=== PATIENT | female | born 1930 | race Caucasian/White ===

== ENCOUNTER 2018-08-07 10:40 | Inpatient (IN) | payer MEDICARE, BC ==
[~2018-08-07] VITALS: Ht 147.3 cm; Wt 63.0 kg
--- NOTE | 2018-08-07 07:15 | NUR ---
Patient seen by respiratory therapist who changed the venturi mask to nasal cannula with oxygen support at 6lpm. Report given to web services manager nurse.
[2018-08-07] MEDS ORDERED: ALBUTEROL SULFATE 2.5 MG/ 0.5 ML NEBU NEB ONE (11:00)
[2018-08-07 11:19] LABS: CARBON DIOXIDE 27 mmol/L (21-32); CHLORIDE 101 mmol/L (98-107); GLUCOSE 172 mg/dL (74-106); POTASSIUM 4.6 mmol/L (3.5-5.1)
[2018-08-07 11:20] LABS: BASOPHILS # (AUTO) 0.1 K/uL (0.0-8.0); BASOPHILS % (AUTO) 0.8 % (0.0-2.0); EOSINOPHILS # (AUTO) 0.1 K/uL (0.0-0.7); HEMATOCRIT 33.7 % (31.2-41.9); HEMOGLOBIN 11.4 g/dL (10.9-14.3); LYMPHOCYTES # (AUTO) 0.7 K/uL (20.0-40.0); LYMPHOCYTES % (AUTO) 6.3 % (20.5-51.5); MEAN CORPUSCULAR HEMOGLOBIN 30.8 uug (24.7-32.8); MEAN CORPUSCULAR HGB CONC 34 g/dL (32.3-35.6); MEAN CORPUSCULAR VOLUME 90.8 fL (75.5-95.3); MONOCYTES # (AUTO) 0.9 K/uL (2.0-10.0); MONOCYTES % (AUTO) 8.7 % (0.0-11.0); NEUTROPHILS # (AUTO) 8.6 K/uL (1.8-8.9); NEUTROPHILS % (AUTO) 83.2 % (38.5-71.5); PLATELET COUNT (AUTO) 250 K/uL (179-408); RED BLOOD CELL COUNT(AUTO) 3.71 MIL/uL (3.63-4.92); WHITE BLOOD COUNT (AUTO) 10.4 K/uL (3.8-11.8)
[2018-08-07 11:21] LABS: UREA NITROGEN, BLOOD 91 mg/dL (7-18)
[2018-08-07] MEDS ORDERED: CHOL100045 PO (11:26)
[2018-08-07] MEDS ORDERED: VITAMIN B12 PO (11:26)
[2018-08-07] MEDS ORDERED: CALC-11 PO (11:26)
[2018-08-07] MEDS ORDERED: NIFE90TA2 PO (11:26)
[2018-08-07] MEDS ORDERED: UBID30CA21 PO (11:26)
[2018-08-07] MEDS ORDERED: CARB-93 PO ×2 (11:26)
[2018-08-07] MEDS ORDERED: MULT1TAB73 PO (11:26)
[2018-08-07] MEDS ORDERED: ATOR10TA PO (11:26)
[2018-08-07] MEDS ORDERED: CARV6.252 PO (11:26)
[2018-08-07] MEDS ORDERED: LEVO88TA39 PO (11:26)
[2018-08-07] MEDS ORDERED: HYDR25TA4 PO (11:26)
[2018-08-07] MEDS ORDERED: CLON0.2T PO (11:26)
[2018-08-07] MEDS ORDERED: OMEG1CAP55 PO (11:26)
--- NOTE | 2018-08-07 11:26 | NUR ---
PT IS IN ROOM #1B. DR HARMAN EVALUATED THE PT.
[2018-08-07] MEDS ORDERED: ALBUTEROL SULFATE 2.5 MG/ 0.5 ML NEBU ONE (11:34)
[2018-08-07 11:36] LABS: ALANINE AMINOTRANSFERASE 11 U/L (14-59); ALKALINE PHOSPHATASE 56 U/L (50-136); ASPARTATE AMINOTRANSFERASE 23 U/L (15-37); BILIRUBIN,DIRECT 0.2 mg/dL (0.0-0.2); BILIRUBIN,TOTAL 0.6 mg/dL (0.2-1.0)
[2018-08-07 11:57] LABS: ABG HCO3 28.2 mmol/L; ABG PCO2 45.8 mmHg (35.0-45.0); ABG PH 7.407 (7.350-7.450); ABG PO2 59.7 mmHg (75.0-100.0); ABG SITE RIGHT RADIAL; ABG TOTAL HEMOGLOBIN 11.7 G/dL (12.0-16.0); COHb 2.1 % (0.5-1.5); MetHb 0.2 % (0.0-1.5); VENT MODE Nasal Cannula
--- NOTE | 2018-08-07 13:10 | NUR ---
REPORT WAS GIVEN TO TESTING CONSULTANT. PT WAS TRANSFERED TO ROOM #206.
[2018-08-07 13:38] VITALS: BP 147/48
--- NOTE | 2018-08-07 14:10 | NUR ---
Received patient awake, alert and oriented x 3. Patient not in any form of distress. Noted with oxygen support with venturi mask with oxygen at 4lpm. With IV access at left antecubital area, patent and intact. Oriented to room, unit and how to use the call light. Patient arrived with two caregivers. Bed in low position, side rails up x 2, call light within reach. Ensured safety and comfort. Will continue to monitor.
--- NOTE | 2018-08-07 14:45 | NUR ---
Patient was sent for VQ scan.
--- NOTE | 2018-08-07 14:50 | NUR ---
Called Dr. Collier regarding patient arrival to unit and for admitting orders.
--- NOTE | 2018-08-07 15:15 | NUR ---
Patient was seen by Dr. Vidal.
[2018-08-07 15:42] VITALS: BP 142/72
--- NOTE | 2018-08-07 18:17 | NUR ---
Still awaiting for admitting orders. Patient awake, alert and oriented x 3. Patient not in any form of distress. Oxygen support with venturi mask with oxygen at 4lpm, maintained. Latest oxygen saturation checked thru earlobe is 93%. With IV access at left antecubital area, patent and intact. Bed in low position, side rails up x 2, call light within reach. Ensured safety and comfort.
--- NOTE | 2018-08-07 19:00 | NUR ---
Report received from day shift RN. Patient has no resp. distress at the moment. Patient on NC @4L. Family at bedside. Patient A/O*3. Waiting for doctots orders to be verified. Safety measures in place. Cont. care plan and to monitor.
[2018-08-07] MEDS ORDERED: ZOLPIDEM 5 MG TABLET PO PRN (20:00)
[2018-08-07] MEDS ORDERED: MAGNESIUM HYDROXIDE 30 ML LIQUID UDC PO PRN (20:00)
[2018-08-07] MEDS ORDERED: Z GUARD REMEDY PASTE 57 GM TUBE TOP PRN (20:00)
[2018-08-07] MEDS ORDERED: ACETAMINOPHEN 325 MG TABLET PO PRN (20:00)
[2018-08-07] MEDS ORDERED: HYDROCODONE/APAP 5-325MG TABLET PO PRN (20:00)
[2018-08-07] MEDS ORDERED: ONDANSETRON 4 MG/2 ML VIAL IV PRN (20:00)
[2018-08-07 20:44] VITALS: BP 140/31
[2018-08-07] MEDS ORDERED: CLONIDINE TTS 2 PATCH TD SCH (20:45)
[2018-08-07] MEDS: Z GUARD REMEDY PASTE 57 GM TUBE TOP SCH (21:55)
[2018-08-07] MEDS: FUROSEMIDE 40 MG/4 ML VIAL IV SCH (21:55)
[2018-08-07] MEDS ORDERED: CLONIDINE HCL 0.2 MG TABLET PO SCH (22:00)
[2018-08-07] MEDS ORDERED: AZITHROMYCIN 500 MG VIAL IV ONE (22:55)
[2018-08-07] MEDS: AZITHROMYCIN IV 500 MG in IV DEXTROSE 5% 250 ML IV SCH (23:21)
[2018-08-08] MEDS: IPRATROPIUM BROMIDE 0.5 MG/2.5 ML NEBU NEB SCH ×7 (00:20→22:40)
[2018-08-08] MEDS: ALBUTEROL SULFATE 1.25 MG/3 ML NEBU NEB SCH ×7 (00:21→22:40)
[2018-08-08 00:53] VITALS: BP 145/51
[2018-08-08 03:33] LABS: BASOPHILS % (AUTO) 0.6 % (0.0-2.0); EOSINOPHILS # (AUTO) 0.2 K/uL (0.0-0.7); EOSINOPHILS % (AUTO) 3.2 % (0.0-7.0); HEMATOCRIT 27.1 % (31.2-41.9); HEMOGLOBIN 9.2 g/dL (10.9-14.3); LYMPHOCYTES # (AUTO) 0.6 K/uL (20.0-40.0); LYMPHOCYTES % (AUTO) 7.8 % (20.5-51.5); MEAN CORPUSCULAR HEMOGLOBIN 30.8 uug (24.7-32.8); MEAN CORPUSCULAR HGB CONC 34 g/dL (32.3-35.6); MEAN CORPUSCULAR VOLUME 90.5 fL (75.5-95.3); MONOCYTES # (AUTO) 0.7 K/uL (2.0-10.0); MONOCYTES % (AUTO) 9.6 % (0.0-11.0); NEUTROPHILS # (AUTO) 5.7 K/uL (1.8-8.9); NEUTROPHILS % (AUTO) 78.8 % (38.5-71.5); PLATELET COUNT (AUTO) 215 K/uL (179-408); RED BLOOD CELL COUNT(AUTO) 2.99 MIL/uL (3.63-4.92); WHITE BLOOD COUNT (AUTO) 7.3 K/uL (3.8-11.8)
[2018-08-08 04:06] LABS: CARBON DIOXIDE 29 mmol/L (21-32); CHLORIDE 100 mmol/L (98-107); CHOLESTEROL 158 mg/dL (<200); GLUCOSE 106 mg/dL (74-106); HDL CHOLESTEROL 60 mg/dL (40-60); PHOSPHOROUS 5.1 mg/dL (2.5-4.9); POTASSIUM 4.1 mmol/L (3.5-5.1); TRIGLYCERIDES 68 MG/DL (30-150)
[2018-08-08 04:10] LABS: UREA NITROGEN, BLOOD 95 mg/dL (7-18)
[2018-08-08 04:23] LABS: CREATINE KINASE, TOTAL 47 U/L (26-192)
[2018-08-08 04:45] VITALS: BP 118/37
[2018-08-08 05:21] LABS: *BILIRUBIN,URIN NEGATIVE (NEGATIVE); *BLOOD, URINE NEGATIVE (NEGATIVE); *CLARITY,URINE CLEAR (CLEAR); *COLOR,URINE YELLOW (YELLOW); *KETONES,URINE NEGATIVE (NEGATIVE); *PROTEIN,URINE NEGATIVE (NEGATIVE); *UROBILINOGEN,URINE 0.2 E.U./dl (NORMAL); LEUKOCYTE ESTERASE ,URINE NEGATIVE (NEGATIVE); NITRITE, URINE NEGATIVE (NEGATIVE); UGLUCOSE NEGATIVE (NEGATIVE)
[2018-08-08 05:54] LABS: BACTERIA,URINE NONE SEEN /HPF (NONE SEEN); RBC,URINE 0-3 /HPF (0-3); SQUAMOUS EPITHELIAL CELL,UR MODERATE /HPF (NONE SEEN); WBC,URINE 0-3 /HPF (0-3)
[2018-08-08 05:55] LABS: MUCUS,URINE FEW /LPF (0-FEW); RENAL EPITHELIAL CELLS,URINE FEW /LPF (NONE SEEN); TRANSITIONAL EPI CELLS,URINE FEW /LPF (NONE SEEN); URINE AMORPHOUS URATE MANY /HPF
--- NOTE | 2018-08-08 06:00 | NUR ---
END OF SHIFT REPORT Patient rested well in between care; Lasix given last night; urine acquired by RN Laura via i/o cath aseptically; incontinence care done; safety maintained; continue to monitor; continue plan of care; will endorse POC to next RN
[2018-08-08 06:02] LABS: *CREATININE,URINE 75.2 mg/dL (30-125); *URINE TOTAL PROTEIN RANDOM < 6.0 mg/dL (<150/24HR)
[2018-08-08] MEDS: LEVOTHYROXINE SODIUM 88 MCG TABLET PO SCH (06:17)
--- NOTE | 2018-08-08 08:00 | NUR ---
IN BED AWAKE ALERT AND ORIENTED X3. NO SS OF PAIN OR DISTRESS SR ON MONITOR
[2018-08-08] MEDS: CALCIUM CARB/VITAMIN D 600-400 MG TABLET PO SCH ×2 (08:21→16:28)
[2018-08-08] MEDS: CARVEDILOL 6.25 MG TABLET PO SCH ×2 (08:23→16:29)
[2018-08-08] MEDS: FUROSEMIDE 40 MG/4 ML VIAL IV SCH (08:23)
[2018-08-08] MEDS: CARBIDOPA/LEVODOPA 25-100MG TABLET PO SCH ×3 (08:23→16:28)
[2018-08-08] MEDS: NIFEdipine XL 90 MG TABSR PO SCH (08:23)
[2018-08-08] MEDS: Z GUARD REMEDY PASTE 57 GM TUBE TOP SCH ×2 (08:24→20:46)
[2018-08-08] MEDS: PANTOPRAZOLE SODIUM 40 MG TABLET.DR PO SCH (08:47)
[2018-08-08] MEDS ORDERED: HYDROCHLOROTHIAZIDE 25 MG TABLET PO SCH (09:00)
[2018-08-08] MEDS ORDERED: CARBIDOPA/LEVODOPA 25-100MG TABLET PO SCH (09:00)
[2018-08-08 09:14] LABS: BASOPHILS # (AUTO) 0.1 K/uL (0.0-8.0); BASOPHILS % (AUTO) 0.9 % (0.0-2.0); EOSINOPHILS # (AUTO) 0.2 K/uL (0.0-0.7); EOSINOPHILS % (AUTO) 2.2 % (0.0-7.0); HEMATOCRIT 28.9 % (31.2-41.9); HEMOGLOBIN 9.7 g/dL (10.9-14.3); LYMPHOCYTES # (AUTO) 0.6 K/uL (20.0-40.0); MEAN CORPUSCULAR HEMOGLOBIN 30.5 uug (24.7-32.8); MEAN CORPUSCULAR HGB CONC 34 g/dL (32.3-35.6); MEAN CORPUSCULAR VOLUME 90.7 fL (75.5-95.3); MONOCYTES # (AUTO) 0.6 K/uL (2.0-10.0); MONOCYTES % (AUTO) 7.3 % (0.0-11.0); NEUTROPHILS # (AUTO) 6.6 K/uL (1.8-8.9); NEUTROPHILS % (AUTO) 82.6 % (38.5-71.5); PLATELET COUNT (AUTO) 223 K/uL (179-408); RED BLOOD CELL COUNT(AUTO) 3.19 MIL/uL (3.63-4.92)
[2018-08-08 09:29] LABS: IRON, SERUM 26 ug/dL (50-175)
[2018-08-08 10:23] LABS: FERRITIN 130 ng/mL (8-252)
[2018-08-08] MEDS ORDERED: CLON1PAT2 TD (10:53)
[2018-08-08] MEDS: CEFTRIAXONE 1 G in IV DEXTROSE 5% 50 ML IV SCH (10:54)
[2018-08-08 11:09] VITALS: BP 123/54
--- NOTE | 2018-08-08 12:00 | NUR ---
WENT TO CT FOR CT CHEST
--- NOTE | 2018-08-08 14:22 | NUR ---
WOUND CARE CONSULT: PT PRESENTS WITH INCONTINENCE AND MULTIPLE AREAS OF BRUISING, SKIN STAINING/DISCOLORATION TO SACRAL/BUTTOCKS AREA, PRESENT ON ADMISSION. PT HAS VERY DRY FLAKY SKIN ON LEGS. RECOMMENDATIONS MADE FOR SKIN PROTECTION AND CARE. DISCUSSED WITH NURSING STAFF. WILL SEE PRN. FRANCISCO IN AGREEMENT WITH PLAN OF CARE. Addendum: 08/08/18 at 1424 by MARYANNE HORTON RN Amended: Links added.
[2018-08-08] MEDS ORDERED: MINERAL OIL/PETROLATUM,WHITE 57 GM TUBE TOP PRN (14:30)
[2018-08-08 15:00] VITALS: BP 130/77
--- NOTE | 2018-08-08 16:15 | NUR ---
RECEIVED A CALL FROM MICRO PT IS POSITIVE FOR MRSA NARES, DR GROVER AWARE. WILL START TX
[2018-08-08] MEDS: MUPIROCIN 2% OINT 22 GM TUBE NS SCH ×2 (17:19→20:45)
--- NOTE | 2018-08-08 19:00 | NUR ---
REPORT RECEIVED FROM DAY SHIFT, PATIENT IS A/O*3, FOLLOWS COMMANDS, COOPERATIVE. NO RESP. DISTRESS AT THE MOMENT , ON NC-4L. UPPER LOBES CLEAR ON AUSCULTATION, LOWER LOBES DIMINISHED. SAFETY MEASURES IN PLACE. CONT CARE PLAN AND MONITOR.
[2018-08-08 19:18] VITALS: BP 123/81
[2018-08-08] MEDS: AZITHROMYCIN IV 500 MG in IV DEXTROSE 5% 250 ML IV SCH (20:45)
[2018-08-08] MEDS: ATORVASTATIN 10 MG TABLET PO SCH (20:45)
[2018-08-08 23:54] VITALS: BP 141/49
[2018-08-09] MEDS: ALBUTEROL SULFATE 1.25 MG/3 ML NEBU NEB SCH ×6 (03:30→23:30)
[2018-08-09] MEDS: IPRATROPIUM BROMIDE 0.5 MG/2.5 ML NEBU NEB SCH ×6 (03:30→23:30)
[2018-08-09 03:34] VITALS: BP 131/62
[2018-08-09] MEDS: LEVOTHYROXINE SODIUM 88 MCG TABLET PO SCH (06:33)
[2018-08-09] MEDS: PANTOPRAZOLE SODIUM 40 MG TABLET.DR PO SCH (06:33)
[2018-08-09 06:57] LABS: BASOPHILS % (AUTO) 0.3 % (0.0-2.0); EOSINOPHILS # (AUTO) 0.4 K/uL (0.0-0.7); EOSINOPHILS % (AUTO) 5.2 % (0.0-7.0); HEMATOCRIT 29.2 % (31.2-41.9); LYMPHOCYTES # (AUTO) 0.5 K/uL (20.0-40.0); LYMPHOCYTES % (AUTO) 7.1 % (20.5-51.5); MEAN CORPUSCULAR HEMOGLOBIN 30.8 uug (24.7-32.8); MEAN CORPUSCULAR HGB CONC 34 g/dL (32.3-35.6); MEAN CORPUSCULAR VOLUME 89.6 fL (75.5-95.3); MONOCYTES # (AUTO) 0.6 K/uL (2.0-10.0); MONOCYTES % (AUTO) 9.1 % (0.0-11.0); NEUTROPHILS # (AUTO) 5.6 K/uL (1.8-8.9); NEUTROPHILS % (AUTO) 78.3 % (38.5-71.5); PLATELET COUNT (AUTO) 243 K/uL (179-408); RED BLOOD CELL COUNT(AUTO) 3.25 MIL/uL (3.63-4.92); WHITE BLOOD COUNT (AUTO) 7.1 K/uL (3.8-11.8)
[2018-08-09 07:13] LABS: ALANINE AMINOTRANSFERASE 9 U/L (14-59); ALKALINE PHOSPHATASE 48 U/L (50-136); ASPARTATE AMINOTRANSFERASE 17 U/L (15-37); BILIRUBIN,TOTAL 0.4 mg/dL (0.2-1.0); CARBON DIOXIDE 30 mmol/L (21-32); CHLORIDE 99 mmol/L (98-107); CREATININE 2.6 mg/dL (0.6-1.3); GLUCOSE 104 mg/dL (74-106); MAGNESIUM 2.6 mg/dL (1.8-2.4); PHOSPHOROUS 5.1 mg/dL (2.5-4.9); POTASSIUM 3.4 mmol/L (3.5-5.1); TOTAL PROTEIN, SERUM 6.8 g/dL (6.4-8.2)
[2018-08-09 07:14] LABS: UREA NITROGEN, BLOOD 90 mg/dL (7-18)
--- NOTE | 2018-08-09 07:17 | NUR ---
END OF SHIFT REPORT: PATIENT IS A/O*3, FOLLOWS COMMANDS, COOPERATIVE. NO RESP. DURING THE NIGHT , ON NC-4L. O2SAT ABOVE 97%. NO COMPLAINS , NO PAIN REPORTED. PATIENT SLEPT ABOUT 5 HOURS ON AND OFF. SAFETY MEASURES IN PLACE.
[2018-08-09] MEDS: CARVEDILOL 6.25 MG TABLET PO SCH ×2 (08:00→17:05)
--- NOTE | 2018-08-09 08:00 | NUR ---
AWAKE ALERT AND VERBALLY RESPONSIVE NO SS OF ACUTE RESPIRATORY DISTRESS. O2 DOWN TO 2L NC SATURATING 94-95%
[2018-08-09] MEDS: CALCIUM CARB/VITAMIN D 600-400 MG TABLET PO SCH ×2 (08:41→17:05)
[2018-08-09] MEDS: CARBIDOPA/LEVODOPA 25-100MG TABLET PO SCH ×3 (08:41→17:05)
[2018-08-09] MEDS: NIFEdipine XL 90 MG TABSR PO SCH (08:42)
[2018-08-09] MEDS: FUROSEMIDE 40 MG/4 ML VIAL IV SCH (08:43)
[2018-08-09] MEDS: Z GUARD REMEDY PASTE 57 GM TUBE TOP SCH ×2 (08:44→21:05)
[2018-08-09] MEDS: MUPIROCIN 2% OINT 22 GM TUBE NS SCH ×2 (08:44→20:50)
[2018-08-09 09:07] LABS: A/G RATIO 0.8 (0.7-1.7); ALBUMIN 2.8 g/dL (2.9-4.4); ALPHA-1-GLOBULIN 0.4 g/dL (0.0-0.4); BETA GLOBULIN 1.1 g/dL (0.7-1.3); GLOBULIN, TOTAL 3.5 g/dL (2.2-3.9); M-SPIKE Not Observed g/dL (Not Observed)
[2018-08-09] MEDS: CEFTRIAXONE 1 G in IV DEXTROSE 5% 50 ML IV SCH (10:16)
[2018-08-09 11:32] VITALS: BP 127/76
--- NOTE | 2018-08-09 13:00 | NUR ---
SEEN BY DR MARKS FOR RENAL FOLLOW-UP SEE NOTES
[2018-08-09 15:50] VITALS: BP 151/65
--- NOTE | 2018-08-09 16:21 | NUR ---
SEEN BY PT/OT SEE NOTES. TOLERATING 2L O2 VIA NC SATURATING 94%. NO SS OF DISTRESS
[2018-08-09 19:24] VITALS: BP 141/55
--- NOTE | 2018-08-09 19:28 | NUR ---
Received pt sitting up in bed, awake, AxO x4. Caregiver at bedside. Tele noted to be SR with HR 84. O2 sat 95% via 2L NC. Denies chest pain or SOB at this time. Discussed and reviewed plan of care with pt, pt cooperative with care. Pt shows no s/s of acute distress. MRSA isolation precautions implemented. Bed on low locked position, call light within reach. Will continue to monitor closely.
[2018-08-09] MEDS: ATORVASTATIN 10 MG TABLET PO SCH (20:46)
[2018-08-09] MEDS: AZITHROMYCIN IV 500 MG in IV DEXTROSE 5% 250 ML IV SCH (20:46)
[2018-08-09 23:45] VITALS: BP 149/68
[2018-08-10 03:27] VITALS: BP 123/88
[2018-08-10] MEDS: IPRATROPIUM BROMIDE 0.5 MG/2.5 ML NEBU NEB SCH ×6 (03:30→22:50)
[2018-08-10] MEDS: ALBUTEROL SULFATE 1.25 MG/3 ML NEBU NEB SCH ×6 (03:30→22:51)
[2018-08-10] MEDS: LEVOTHYROXINE SODIUM 88 MCG TABLET PO SCH (06:03)
[2018-08-10] MEDS: PANTOPRAZOLE SODIUM 40 MG TABLET.DR PO SCH (06:03)
--- NOTE | 2018-08-10 06:42 | NUR ---
No significant changes t/o shift. Stool softener med given x1, no effect. Pt denies pain, SOB or severe headache at this time. No s/s of acute respiratory distress. Kept pt clean and dry. Carried out all meds as ordered. Will continue to monitor.
--- NOTE | 2018-08-10 07:30 | NUR ---
RECEIVED PATIENT RESTING IN BED, O2 2L/NC, NO SOB. SAFETY MEASURES IN PLACE, BED ALARM ON. PATIENT ON CONTACT ISOLATION FOR MRSA NARES.
[2018-08-10 08:00] VITALS: BP 132/69
--- NOTE | 2018-08-10 08:00 | NUR ---
VS STABLE, AFEBRILE, O2 2L/NC SATURATING AT 98%. EDEMA NOTED ON BILATERAL LOWER EXTREMITIES, SKIN DRY, WARM. WILL CONTINUE TO MONITOR.
--- NOTE | 2018-08-10 08:00 | NUR ---
PATIENT ON TELE MONITOR AFIB CONTROLLED Addendum: 08/10/18 at 1804 by DERIAN CALLOWAY RN ADD: HR 80'S
[2018-08-10] MEDS: CARBIDOPA/LEVODOPA 25-100MG TABLET PO SCH ×3 (08:32→17:10)
[2018-08-10] MEDS: ASPIRIN EC 325 MG TABLET.DR PO SCH (08:32)
[2018-08-10] MEDS: CALCIUM CARB/VITAMIN D 600-400 MG TABLET PO SCH ×2 (08:32→17:10)
[2018-08-10] MEDS: CARVEDILOL 6.25 MG TABLET PO SCH (08:33)
[2018-08-10] MEDS: FUROSEMIDE 40 MG/4 ML VIAL IV SCH (08:34)
[2018-08-10] MEDS: NIFEdipine XL 90 MG TABSR PO SCH (08:34)
[2018-08-10] MEDS: Z GUARD REMEDY PASTE 57 GM TUBE TOP SCH ×2 (08:37→20:59)
[2018-08-10] MEDS: MUPIROCIN 2% OINT 22 GM TUBE NS SCH ×2 (08:45→20:27)
[2018-08-10] MEDS: CEFTRIAXONE 1 G in IV DEXTROSE 5% 50 ML IV SCH (09:05)
[2018-08-10 11:32] VITALS: BP 102/43
[2018-08-10 16:00] VITALS: BP 121/47
[2018-08-10 17:56] LABS: BASOPHILS % (AUTO) 0.6 % (0.0-2.0); EOSINOPHILS # (AUTO) 0.4 K/uL (0.0-0.7); EOSINOPHILS % (AUTO) 4.5 % (0.0-7.0); HEMATOCRIT 30.2 % (31.2-41.9); HEMOGLOBIN 10.4 g/dL (10.9-14.3); LYMPHOCYTES # (AUTO) 0.6 K/uL (20.0-40.0); LYMPHOCYTES % (AUTO) 7.6 % (20.5-51.5); MEAN CORPUSCULAR HEMOGLOBIN 31.1 uug (24.7-32.8); MEAN CORPUSCULAR HGB CONC 35 g/dL (32.3-35.6); MEAN CORPUSCULAR VOLUME 89.8 fL (75.5-95.3); MONOCYTES # (AUTO) 0.9 K/uL (2.0-10.0); NEUTROPHILS # (AUTO) 6.1 K/uL (1.8-8.9); NEUTROPHILS % (AUTO) 76.3 % (38.5-71.5); PLATELET COUNT (AUTO) 277 K/uL (179-408); RED BLOOD CELL COUNT(AUTO) 3.36 MIL/uL (3.63-4.92)
--- NOTE | 2018-08-10 18:00 | NUR ---
PATIENT ON TELE MONITOR AFIB CONTROLLED HR 98
[2018-08-10 18:22] LABS: ALANINE AMINOTRANSFERASE 9 U/L (14-59); ALKALINE PHOSPHATASE 53 U/L (50-136); ASPARTATE AMINOTRANSFERASE 15 U/L (15-37); BILIRUBIN,TOTAL 0.4 mg/dL (0.2-1.0); CARBON DIOXIDE 35 mmol/L (21-32); CHLORIDE 99 mmol/L (98-107); CREATININE 2.5 mg/dL (0.6-1.3); GLUCOSE 131 mg/dL (74-106); MAGNESIUM 2.6 mg/dL (1.8-2.4); PHOSPHOROUS 3.9 mg/dL (2.5-4.9); POTASSIUM 3.6 mmol/L (3.5-5.1); TOTAL PROTEIN, SERUM 6.8 g/dL (6.4-8.2)
[2018-08-10 18:23] LABS: UREA NITROGEN, BLOOD 83 mg/dL (7-18)
[2018-08-10 19:00] VITALS: BP 130/85
--- NOTE | 2018-08-10 19:20 | NUR ---
Received patient lying in bed. AAOX3. In no acute distress. VS WNL. Denies any pain or SOB. On O2 at 2llpm via NC in place. O2 sat at 98%. IV site on right wrist intact and patent. NSR with controlled A. fib on tele at 79/min. Private caregiver at bedside. Isolation precaution observed. Safety measure initiated and call gale within reach.
[2018-08-10] MEDS: AZITHROMYCIN IV 500 MG in IV DEXTROSE 5% 250 ML IV SCH (20:26)
[2018-08-10] MEDS: ATORVASTATIN 10 MG TABLET PO SCH (20:26)
[2018-08-10] MEDS: LACTOBACILLUS RHAMNOSUS GG 1 EACH CAPSULE PO SCH (20:26)
[2018-08-10] MEDS: METOPROLOL TARTRATE 50 MG TABLET PO SCH (20:26)
[2018-08-11] VITALS: BP 121/78
[2018-08-11] MEDS: IPRATROPIUM BROMIDE 0.5 MG/2.5 ML NEBU NEB SCH ×4 (03:12→14:30)
[2018-08-11] MEDS: ALBUTEROL SULFATE 1.25 MG/3 ML NEBU NEB SCH ×4 (03:12→14:30)
[2018-08-11 04:00] VITALS: BP 145/51
[2018-08-11] MEDS: LEVOTHYROXINE SODIUM 88 MCG TABLET PO SCH (06:06)
[2018-08-11] MEDS: PANTOPRAZOLE SODIUM 40 MG TABLET.DR PO SCH (06:06)
--- NOTE | 2018-08-11 06:17 | NUR ---
AAOX3. In no acute distress. Denies any pain or SOB. On O2 at 2llpm via NC in place. O2 sat at 98%. Sporadic non-productive cough noted. IV site on right wrist intact and patent. NSR, occasional sinus jigar on tele at 67/min. No adverse reaction noted from IV ABX. Isolation precaution observed. Safety measure maintained and call gale within reach.
[2018-08-11 06:22] LABS: BASOPHILS % (AUTO) 0.4 % (0.0-2.0); EOSINOPHILS # (AUTO) 0.5 K/uL (0.0-0.7); EOSINOPHILS % (AUTO) 6.8 % (0.0-7.0); HEMATOCRIT 27.9 % (31.2-41.9); HEMOGLOBIN 9.6 g/dL (10.9-14.3); LYMPHOCYTES # (AUTO) 0.7 K/uL (20.0-40.0); LYMPHOCYTES % (AUTO) 9.8 % (20.5-51.5); MEAN CORPUSCULAR HEMOGLOBIN 30.3 uug (24.7-32.8); MEAN CORPUSCULAR HGB CONC 34 g/dL (32.3-35.6); MEAN CORPUSCULAR VOLUME 88.4 fL (75.5-95.3); MONOCYTES # (AUTO) 0.7 K/uL (2.0-10.0); MONOCYTES % (AUTO) 10.8 % (0.0-11.0); NEUTROPHILS # (AUTO) 4.8 K/uL (1.8-8.9); NEUTROPHILS % (AUTO) 72.2 % (38.5-71.5); PLATELET COUNT (AUTO) 244 K/uL (179-408); RED BLOOD CELL COUNT(AUTO) 3.15 MIL/uL (3.63-4.92); WHITE BLOOD COUNT (AUTO) 6.6 K/uL (3.8-11.8)
[2018-08-11 07:00] LABS: ALANINE AMINOTRANSFERASE 10 U/L (14-59); ALKALINE PHOSPHATASE 47 U/L (50-136); ASPARTATE AMINOTRANSFERASE 17 U/L (15-37); BILIRUBIN,TOTAL 0.4 mg/dL (0.2-1.0); CARBON DIOXIDE 34 mmol/L (21-32); CHLORIDE 99 mmol/L (98-107); CREATININE 2.2 mg/dL (0.6-1.3); GLUCOSE 93 mg/dL (74-106); MAGNESIUM 2.6 mg/dL (1.8-2.4); PHOSPHOROUS 3.8 mg/dL (2.5-4.9); POTASSIUM 3.5 mmol/L (3.5-5.1); TOTAL PROTEIN, SERUM 6.8 g/dL (6.4-8.2); UREA NITROGEN, BLOOD 76 mg/dL (7-18)
--- NOTE | 2018-08-11 07:25 | NUR ---
PATIENT IS ON FIRST STEP MATTRASS FOR COMFORT AND GOOD BODY ALLIGNMENT ASSISTED WITH REPOSITIONING Q2H SHE IS ALERT AND VERBALLY RESPONSIVE BUT FORGETFUL ON O2 AT 2L/M BY NASAL CANULA WITH NO SOB AT THIS TIME ON CONTACT ISOLATION AND PRECAUTION HAS POSITIVE MRSA NARES.TELE IS SINUS OCTAVIO AT 52 AT THIS TIME PATIENT MADE COMFORTABLE WITH CALL LIGHTS AND PERSONAL BELONGINGS WITHIN EASY REACH NOT IN DISTRESS AT THIS TIME WILL CONTINUE TO OBSERVE AND PROVIDE SAFE AND THERAPEUTIC ENVIRONMENT AT ALL TIMES.
[2018-08-11] MEDS: CARBIDOPA/LEVODOPA 25-100MG TABLET PO SCH ×2 (08:37→11:49)
[2018-08-11] MEDS: LACTOBACILLUS RHAMNOSUS GG 1 EACH CAPSULE PO SCH (08:37)
[2018-08-11] MEDS: ASPIRIN EC 325 MG TABLET.DR PO SCH (08:37)
[2018-08-11] MEDS: CALCIUM CARB/VITAMIN D 600-400 MG TABLET PO SCH (08:37)
[2018-08-11] MEDS: FUROSEMIDE 40 MG/4 ML VIAL IV SCH (08:38)
[2018-08-11] MEDS: MUPIROCIN 2% OINT 22 GM TUBE NS SCH (08:39)
[2018-08-11] MEDS: Z GUARD REMEDY PASTE 57 GM TUBE TOP SCH (08:39)
[2018-08-11] MEDS: METOPROLOL TARTRATE 50 MG TABLET PO SCH ×2 (08:40→11:12)
[2018-08-11] MEDS: CEFTRIAXONE 1 G in IV DEXTROSE 5% 50 ML IV SCH (09:19)
[2018-08-11 11:31] VITALS: BP 147/50
[2018-08-11 11:35] VITALS: BP 147/50
[2018-08-11] MEDS ORDERED: ALBU1.25 NEB (12:02)
[2018-08-11] MEDS ORDERED: IPRA0.2S6 NEB (12:02)
[2018-08-11] MEDS ORDERED: FURO-151 PO (12:02)
[2018-08-11] MEDS ORDERED: POTA-10 PO (12:02)
--- NOTE | 2018-08-11 12:35 | NUR ---
PATIENT SEEN BY DR GROVER WITH ORDER TO DISCHARGE PATIENT HOME TODAY.MD STATED THAT HE ALREADY SENT MEDICATIONS ELECTRONICALLY TO PATIENTS HOME PHARMACY BUT PATIENT DAUGHTER STATED THAT THE PHARMACY DID NOT RECEIVE THE ORDERS SO SHE GAVE ME ANOTHER PHARMACY NAMED [facility].
--- NOTE | 2018-08-11 13:00 | NUR ---
ON O2 PATIENT WAS 95% O2 TURNED OFF FOR 15 MINUTES AND THEN RECHECKED ON ROOM AIR AND THE SAT IS 84 % O2 REAPPLIED AT THIS TIME.PATIENT WILL NEED HOME O2 SENIOR IOS DEVELOPER AWARE.
--- NOTE | 2018-08-11 13:30 | NUR ---
Per Priya RN: pt saturation on room air was 84%. noted and faxed with orders for oxygen to [facility] @ [phone]
--- NOTE | 2018-08-11 13:30 | NUR ---
CALLED [facility] SPOKE WITH CLEMENTE PHARMACIST AND ORDERED ALL HER HOME MEDICATIONS PATIENTS GRAND DAUGHTER GEOVANI HERE AND STATED WILL TURBINE ASSEMBLER.
[2018-08-11 15:05] VITALS: BP 132/47
--- NOTE | 2018-08-11 16:52 | NUR ---
PATIENTS OLVIN BRAVO HERE AND PATIENT DISCHARGED TO HIS CARE IN SATISFACTORY CONDITION WITH DISCHARGE INSTRUCTIONS AND PRESCRIPTIONS FOR THE NEBULIZER MACHINE AND O2 PATIENTS SON BROUGHT THE PORTABLE O2 THAT WAS DELIVERED TO THE PATIENTS HOUSE CONNECTED TO HER AT 2L/M BY NASAL CANULA PATIENT DISCHARGED IN SATISFACTORY CONDITION WITH NO RESPIRATORY DISTRESS AT THIS TIME WITH ALL HER PERSONAL BELONGINGS.PATIENTS CERTIFIED ADAPTED PHYSICAL EDUCATOR ALSO PRESENT EDUCATED HER ON FLOATING PATIENTS HEELS AND TURNING AND REPOSITIONING AND SHE EXPRESSED UNDERSTANDING.
[2018-08-13] MEDS ORDERED: CLONIDINE TTS 2 PATCH TD SCH (09:00)
== END 2018-08-11 17:00 | disposition home health service (06) | DRG 291 ==
LOC: ER 10:40 → TELE 12:36
PROVIDERS: ADMIT Internal Medicine; ATTEND Internal Medicine
DX: I13.0 Hypertensive heart and chronic kidney disease with heart failure and stage 1 through stage 4 chronic kidney disease, or unspecified chronic kidney disease (principal); I50.33 Acute on chronic diastolic (congestive) heart failure; N17.0 Acute kidney failure with tubular necrosis; J18.9 Pneumonia, unspecified organism; J96.01 Acute respiratory failure with hypoxia; J44.0 Chronic obstructive pulmonary disease with (acute) lower respiratory infection; J44.1 Chronic obstructive pulmonary disease with (acute) exacerbation; J98.11 Atelectasis; N18.9 Chronic kidney disease, unspecified; J20.9 Acute bronchitis, unspecified; E78.5 Hyperlipidemia, unspecified; G20 Parkinson's disease; Z96.651 Presence of right artificial knee joint; Z90.710 Acquired absence of both cervix and uterus; Z85.038 Personal history of other malignant neoplasm of large intestine; E03.9 Hypothyroidism, unspecified; I07.1 Rheumatic tricuspid insufficiency; Z74.09 Other reduced mobility; I48.91 Unspecified atrial fibrillation; I49.1 Atrial premature depolarization; Z98.1 Arthrodesis status; D64.9 Anemia, unspecified; Z66 Do not resuscitate
CPT/HCPCS: 36415; 36600; 70030-TC; 71045; 71250; 76604; 76770; 78579; 83550; 83605; 83735; 83970; 84100; 84155; 84156; 84165; 84300; 85025; 85730; 87040; 87086; 87400; 92523; 92526; 92610; 93005; 93307; 94640; 97110; 97116; 97165; 97530; A4663; A9540; A9567; C1758; G0378; J0456; J0696; J1940; J3590; J7050; J7060

== ENCOUNTER 2018-11-17 11:44 | Inpatient (IN) | payer MEDICARE, BC ==
[~2018-11-17] VITALS: Ht 147.3 cm; Wt 51.5 kg
[~2018-11-17 11:44] MED LIST: ALBU1.25 NEB; ATOR10TA PO; CALC-11 PO; CARB-93 PO; CARV6.252 PO; CHOL100045 PO; CLON1PAT2 TD; FURO-151 PO; IPRA0.2S6 NEB; LEVO88TA39 PO; MULT1TAB73 PO; NIFE90TA2 PO; OMEG1CAP55 PO; POTA-10 PO; UBID30CA21 PO; VITAMIN B12 PO
[2018-11-17 12:31] LABS: BASOPHILS # (AUTO) 0.1 K/uL (0.0-8.0); BASOPHILS % (AUTO) 0.8 % (0.0-2.0); EOSINOPHILS # (AUTO) 0.1 K/uL (0.0-0.7); EOSINOPHILS % (AUTO) 2.2 % (0.0-7.0); HEMATOCRIT 28.2 % (31.2-41.9); HEMOGLOBIN 9.6 g/dL (10.9-14.3); LYMPHOCYTES # (AUTO) 0.8 K/uL (20.0-40.0); LYMPHOCYTES % (AUTO) 12.8 % (20.5-51.5); MEAN CORPUSCULAR HEMOGLOBIN 29.7 uug (24.7-32.8); MEAN CORPUSCULAR HGB CONC 34 g/dL (32.3-35.6); MEAN CORPUSCULAR VOLUME 87.3 fL (75.5-95.3); MONOCYTES # (AUTO) 0.5 K/uL (2.0-10.0); NEUTROPHILS # (AUTO) 4.8 K/uL (1.8-8.9); NEUTROPHILS % (AUTO) 76.2 % (38.5-71.5); PLATELET COUNT (AUTO) 272 K/uL (179-408); RED BLOOD CELL COUNT(AUTO) 3.23 MIL/uL (3.63-4.92); WHITE BLOOD COUNT (AUTO) 6.3 K/uL (3.8-11.8)
[2018-11-17] MEDS ORDERED: MULT-328 PO (12:36)
[2018-11-17] MEDS ORDERED: FURO-151 PO (12:36)
[2018-11-17] MEDS ORDERED: IPRA0.2S48 IH (12:36)
[2018-11-17] MEDS ORDERED: ALBU1.257 NEB (12:36)
[2018-11-17] MEDS ORDERED: CYAN100T3 PO (12:36)
[2018-11-17 12:37] LABS: CARBON DIOXIDE 36 mmol/L (21-32); CHLORIDE 102 mmol/L (98-107); CREATININE 4.6 mg/dL (0.6-1.3); GLUCOSE 177 mg/dL (74-106); POTASSIUM 4.5 mmol/L (3.5-5.1)
[2018-11-17 12:39] LABS: UREA NITROGEN, BLOOD 84 mg/dL (7-18)
[2018-11-17 12:43] LABS: ALANINE AMINOTRANSFERASE 9 U/L (14-59); ALKALINE PHOSPHATASE 52 U/L (50-136); ASPARTATE AMINOTRANSFERASE 19 U/L (15-37); BILIRUBIN,DIRECT 0.1 mg/dL (0.0-0.2); BILIRUBIN,TOTAL 0.4 mg/dL (0.2-1.0); LIPASE 275 U/L (73-393); TOTAL PROTEIN, SERUM 7.2 g/dL (6.4-8.2)
[2018-11-17 15:05] VITALS: BP 106/50
[2018-11-17] MEDS ORDERED: Z GUARD REMEDY PASTE 57 GM TUBE TOP PRN (16:45)
[2018-11-17] MEDS ORDERED: IPRATROPIUM BROMIDE 0.5 MG/2.5 ML NEBU NEB PRN (18:45)
[2018-11-17] MEDS ORDERED: MORPHINE SULFATE 2 MG/1 ML DISP.SYRIN IV PRN (18:45)
[2018-11-17] MEDS ORDERED: ONDANSETRON 4 MG/2 ML VIAL IV PRN (18:45)
[2018-11-17] MEDS ORDERED: ACETAMINOPHEN 325 MG TABLET PO PRN (18:45)
[2018-11-17] MEDS ORDERED: ALBUTEROL SULFATE 2.5 MG/3 ML NEBU NEB PRN (18:45)
[2018-11-17 19:14] VITALS: BP 183/55
[2018-11-17] MEDS: ATORVASTATIN 10 MG TABLET PO SCH (20:19)
[2018-11-17] MEDS: CARBIDOPA/LEVODOPA 25-100MG TABLET PO SCH (20:20)
[2018-11-17] MEDS: hydrALAZINE HCL 25 MG TABLET PO PRN (20:26)
[2018-11-17] MEDS: IV 1/2NS 1000 ML 1,000 ML IV PRN (20:29)
[2018-11-17 23:37] VITALS: BP 171/46
[2018-11-18 02:00] VITALS: BP 152/65
[2018-11-18 03:31] VITALS: BP 161/53
[2018-11-18] MEDS: hydrALAZINE HCL 25 MG TABLET PO PRN (05:22)
[2018-11-18] MEDS: LEVOTHYROXINE SODIUM 88 MCG TABLET PO SCH (05:22)
[2018-11-18 06:46] LABS: BASOPHILS % (AUTO) 0.7 % (0.0-2.0); EOSINOPHILS # (AUTO) 0.1 K/uL (0.0-0.7); EOSINOPHILS % (AUTO) 2.2 % (0.0-7.0); HEMATOCRIT 25.9 % (31.2-41.9); LYMPHOCYTES # (AUTO) 0.9 K/uL (20.0-40.0); LYMPHOCYTES % (AUTO) 14.1 % (20.5-51.5); MEAN CORPUSCULAR HEMOGLOBIN 30.1 uug (24.7-32.8); MEAN CORPUSCULAR HGB CONC 35 g/dL (32.3-35.6); MEAN CORPUSCULAR VOLUME 86.6 fL (75.5-95.3); MONOCYTES # (AUTO) 0.7 K/uL (2.0-10.0); NEUTROPHILS # (AUTO) 4.8 K/uL (1.8-8.9); PLATELET COUNT (AUTO) 250 K/uL (179-408); WHITE BLOOD COUNT (AUTO) 6.6 K/uL (3.8-11.8)
[2018-11-18 07:31] LABS: ALANINE AMINOTRANSFERASE < 6 U/L (14-59); ALKALINE PHOSPHATASE 46 U/L (50-136); ASPARTATE AMINOTRANSFERASE 16 U/L (15-37); BILIRUBIN,TOTAL 0.3 mg/dL (0.2-1.0); CARBON DIOXIDE 34 mmol/L (21-32); CHLORIDE 101 mmol/L (98-107); CHOLESTEROL 123 mg/dL (<200); CREATININE 4.4 mg/dL (0.6-1.3); GLUCOSE 96 mg/dL (74-106); HDL CHOLESTEROL 59 mg/dL (40-60); MAGNESIUM 2.8 mg/dL (1.8-2.4); POTASSIUM 4.3 mmol/L (3.5-5.1); TOTAL PROTEIN, SERUM 6.9 g/dL (6.4-8.2); TRIGLYCERIDES 71 MG/DL (30-150); UREA NITROGEN, BLOOD 71 mg/dL (7-18)
[2018-11-18 07:51] LABS: CREATINE KINASE, TOTAL 29 U/L (26-192)
[2018-11-18 07:58] LABS: THYROID STIMULATING HORMONE 2.168 mIU/mL (0.358-3.740)
[2018-11-18 08:00] LABS: IRON, SERUM 48 ug/dL (50-175)
[2018-11-18] MEDS: CARBIDOPA/LEVODOPA 25-100MG TABLET PO SCH ×3 (08:02→16:49)
[2018-11-18] MEDS: MULTIVIT, IRON, MIN NO. 8, FA TABLET PO SCH (08:02)
[2018-11-18] MEDS: NIFEdipine XL 90 MG TABSR PO SCH (08:02)
[2018-11-18] MEDS ORDERED: [UNRECOGNIZED DRUG - OTHER] PO SCH (09:00)
[2018-11-18] MEDS: CALCIUM CARB/VITAMIN D 600-400 MG TABLET PO SCH (09:00)
[2018-11-18] MEDS ORDERED: Medication Not On Formulary EA (Omega-3 Acid Ethyl Esters (Lovaza) 1 GM) PO SCH (09:00)
[2018-11-18 11:12] VITALS: BP 116/41
[2018-11-18 12:00] VITALS: BP 116/41
[2018-11-18 15:00] VITALS: BP 129/47
[2018-11-18] MEDS: CYANOCOBALAMIN 100 MCG TABLET PO SCH (16:49)
[2018-11-18] MEDS: IV 1/2NS 1000 ML 1,000 ML IV PRN (16:54)
[2018-11-18] MEDS ORDERED: CHOLECALCIFEROL 1,000 UNIT TABLET PO SCH (18:00)
[2018-11-18] MEDS: IPRATROPIUM BROMIDE 0.5 MG/2.5 ML NEBU NEB SCH ×2 (19:15→23:00)
[2018-11-18] MEDS: ALBUTEROL SULFATE 2.5 MG/3 ML NEBU NEB SCH ×2 (19:15→23:00)
[2018-11-18 20:20] VITALS: BP 125/38
[2018-11-18] MEDS: ATORVASTATIN 10 MG TABLET PO SCH (21:10)
[2018-11-18] MEDS: FLUTICASONE/VILANTEROL 1 EACH BLST.W.DEV INH SCH (21:11)
[2018-11-19 01:08] VITALS: BP 132/45
[2018-11-19] MEDS: ALBUTEROL SULFATE 2.5 MG/3 ML NEBU NEB SCH ×6 (02:50→22:34)
[2018-11-19] MEDS: IPRATROPIUM BROMIDE 0.5 MG/2.5 ML NEBU NEB SCH ×6 (02:50→22:34)
[2018-11-19] MEDS: LEVOTHYROXINE SODIUM 88 MCG TABLET PO SCH (06:20)
[2018-11-19 06:37] VITALS: BP 143/56
[2018-11-19 08:07] LABS: EOSINOPHILS # (AUTO) 0.2 K/uL (0.0-0.7); MONOCYTES # (AUTO) 0.7 K/uL (2.0-10.0); PLATELET COUNT (AUTO) 219 K/uL (179-408)
[2018-11-19] MEDS: FLUTICASONE/VILANTEROL 1 EACH BLST.W.DEV INH SCH (08:14)
[2018-11-19] MEDS: CARBIDOPA/LEVODOPA 25-100MG TABLET PO SCH ×3 (08:14→16:44)
[2018-11-19] MEDS: MULTIVIT, IRON, MIN NO. 8, FA TABLET PO SCH (08:15)
[2018-11-19 08:18] LABS: BASOPHILS % (AUTO) 0.6 % (0.0-2.0); EOSINOPHILS % (AUTO) 2.3 % (0.0-7.0); LYMPHOCYTES % (AUTO) 12.5 % (20.5-51.5); MEAN CORPUSCULAR HEMOGLOBIN 30.1 uug (24.7-32.8); MEAN CORPUSCULAR HGB CONC 35 g/dL (32.3-35.6); MEAN CORPUSCULAR VOLUME 86.5 fL (75.5-95.3); MONOCYTES % (AUTO) 9.2 % (0.0-11.0); NEUTROPHILS # (AUTO) 5.8 K/uL (1.8-8.9); NEUTROPHILS % (AUTO) 75.4 % (38.5-71.5); RED BLOOD CELL COUNT(AUTO) 2.67 MIL/uL (3.63-4.92); WHITE BLOOD COUNT (AUTO) 7.7 K/uL (3.8-11.8)
[2018-11-19 08:19] LABS: HEMATOCRIT 23.1 % (31.2-41.9)
[2018-11-19] MEDS: NIFEdipine XL 90 MG TABSR PO SCH (08:24)
[2018-11-19] MEDS: CALCIUM CARB/VITAMIN D 600-400 MG TABLET PO SCH (08:25)
[2018-11-19 08:41] LABS: ALANINE AMINOTRANSFERASE 6 U/L (14-59); ALKALINE PHOSPHATASE 45 U/L (50-136); ASPARTATE AMINOTRANSFERASE 18 U/L (15-37); BILIRUBIN,TOTAL 0.3 mg/dL (0.2-1.0); CARBON DIOXIDE 32 mmol/L (21-32); CHLORIDE 101 mmol/L (98-107); CREATINE KINASE, TOTAL 35 U/L (26-192); CREATININE 4.2 mg/dL (0.6-1.3); GLUCOSE 87 mg/dL (74-106); MAGNESIUM 2.5 mg/dL (1.8-2.4); POTASSIUM 4.3 mmol/L (3.5-5.1); TOTAL PROTEIN, SERUM 6.7 g/dL (6.4-8.2); UREA NITROGEN, BLOOD 73 mg/dL (7-18)
[2018-11-19] MEDS ORDERED: CLONIDINE TTS 2 PATCH TD SCH (09:00)
[2018-11-19 11:36] VITALS: BP 118/48
[2018-11-19] MEDS: IV D5/ 0.9% NACL 1,000 ML IV PRN (13:47)
[2018-11-19] MEDS: hydrALAZINE HCL 25 MG TABLET PO PRN (15:03)
[2018-11-19 15:13] VITALS: BP 171/51
[2018-11-19] MEDS: OMEGA-3 FATTY ACIDS/FISH OIL CAPSULE PO SCH (16:44)
[2018-11-19] MEDS: CYANOCOBALAMIN 100 MCG TABLET PO SCH (16:44)
[2018-11-19] MEDS: ATORVASTATIN 10 MG TABLET PO SCH (20:06)
[2018-11-19 20:26] VITALS: BP 173/56
[2018-11-19] MEDS ORDERED: hydrALAZINE HCL 25 MG TABLET PO PRN (21:15)
[2018-11-19 22:00] VITALS: BP 149/66
[2018-11-20] VITALS: BP 138/65
[2018-11-20 00:11] LABS: ALBUMIN 2.9 g/dL (2.9-4.4); ALPHA-1-GLOBULIN 0.3 g/dL (0.0-0.4); ALPHA-2-GLOBULIN 0.7 g/dL (0.4-1.0); M-SPIKE Not Observed g/dL (Not Observed)
[2018-11-20] MEDS: ALBUTEROL SULFATE 2.5 MG/3 ML NEBU NEB SCH ×7 (03:29→23:26)
[2018-11-20] MEDS: IPRATROPIUM BROMIDE 0.5 MG/2.5 ML NEBU NEB SCH ×7 (03:29→23:25)
[2018-11-20 04:00] VITALS: BP 100/66
[2018-11-20] MEDS: LEVOTHYROXINE SODIUM 88 MCG TABLET PO SCH (06:13)
[2018-11-20 06:37] LABS: BASOPHILS % (AUTO) 0.6 % (0.0-2.0); EOSINOPHILS # (AUTO) 0.2 K/uL (0.0-0.7); EOSINOPHILS % (AUTO) 2.7 % (0.0-7.0); HEMATOCRIT 22.5 % (31.2-41.9); HEMOGLOBIN 7.9 g/dL (10.9-14.3); LYMPHOCYTES # (AUTO) 0.8 K/uL (20.0-40.0); LYMPHOCYTES % (AUTO) 12.4 % (20.5-51.5); MEAN CORPUSCULAR HEMOGLOBIN 30.4 uug (24.7-32.8); MEAN CORPUSCULAR HGB CONC 35 g/dL (32.3-35.6); MEAN CORPUSCULAR VOLUME 87.2 fL (75.5-95.3); MONOCYTES # (AUTO) 0.6 K/uL (2.0-10.0); MONOCYTES % (AUTO) 9.9 % (0.0-11.0); NEUTROPHILS # (AUTO) 4.6 K/uL (1.8-8.9); NEUTROPHILS % (AUTO) 74.4 % (38.5-71.5); PLATELET COUNT (AUTO) 218 K/uL (179-408); RED BLOOD CELL COUNT(AUTO) 2.58 MIL/uL (3.63-4.92); WHITE BLOOD COUNT (AUTO) 6.2 K/uL (3.8-11.8)
[2018-11-20 06:59] LABS: ALKALINE PHOSPHATASE 44 U/L (50-136); ASPARTATE AMINOTRANSFERASE 10 U/L (15-37); BILIRUBIN,TOTAL 0.3 mg/dL (0.2-1.0); CARBON DIOXIDE 30 mmol/L (21-32); CHLORIDE 106 mmol/L (98-107); CREATININE 3.7 mg/dL (0.6-1.3); GLUCOSE 93 mg/dL (74-106); MAGNESIUM 2.4 mg/dL (1.8-2.4); PHOSPHOROUS 3.7 mg/dL (2.5-4.9); POTASSIUM 4.3 mmol/L (3.5-5.1); TOTAL PROTEIN, SERUM 6.4 g/dL (6.4-8.2); UREA NITROGEN, BLOOD 64 mg/dL (7-18)
[2018-11-20 07:07] LABS: ALANINE AMINOTRANSFERASE < 6 U/L (14-59)
[2018-11-20 07:45] VITALS: BP 133/46
[2018-11-20] MEDS: OMEGA-3 FATTY ACIDS/FISH OIL CAPSULE PO SCH ×2 (08:14→17:37)
[2018-11-20] MEDS: MULTIVIT, IRON, MIN NO. 8, FA TABLET PO SCH (08:14)
[2018-11-20] MEDS: CARBIDOPA/LEVODOPA 25-100MG TABLET PO SCH ×3 (08:14→17:37)
[2018-11-20] MEDS: NIFEdipine XL 90 MG TABSR PO SCH (08:15)
[2018-11-20] MEDS: FLUTICASONE/VILANTEROL 1 EACH BLST.W.DEV INH SCH (08:18)
[2018-11-20] MEDS: IV D5/ 0.9% NACL 1,000 ML IV PRN (10:44)
[2018-11-20 11:29] VITALS: BP 153/57
[2018-11-20 13:58] LABS: A/G RATIO 0.9 (0.7-1.7); ALBUMIN 2.8 g/dL (2.9-4.4); ALPHA-1-GLOBULIN 0.3 g/dL (0.0-0.4); ALPHA-2-GLOBULIN 0.7 g/dL (0.4-1.0); BETA GLOBULIN 0.9 g/dL (0.7-1.3); GAMMA GLOBULIN 1.1 g/dL (0.4-1.8); M-SPIKE Not Observed g/dL (Not Observed)
[2018-11-20 15:28] VITALS: BP 121/41
[2018-11-20] MEDS: CYANOCOBALAMIN 100 MCG TABLET PO SCH (17:37)
[2018-11-20 20:18] VITALS: BP 135/48
[2018-11-20] MEDS: ATORVASTATIN 10 MG TABLET PO SCH (20:36)
[2018-11-21] VITALS: BP 122/56
[2018-11-21] MEDS: ALBUTEROL SULFATE 2.5 MG/3 ML NEBU NEB SCH ×4 (02:35→15:10)
[2018-11-21] MEDS: IPRATROPIUM BROMIDE 0.5 MG/2.5 ML NEBU NEB SCH ×4 (02:35→15:10)
[2018-11-21 04:00] VITALS: BP 187/60
[2018-11-21] MEDS: IV D5/ 0.9% NACL 1,000 ML IV PRN (04:07)
[2018-11-21] MEDS: LEVOTHYROXINE SODIUM 88 MCG TABLET PO SCH (05:34)
[2018-11-21 06:30] VITALS: BP 142/63
[2018-11-21 08:00] VITALS: BP_SYST 139; BP_SYST 149; BP_DIAS 48; BP_DIAS 72
[2018-11-21] MEDS: MULTIVIT, IRON, MIN NO. 8, FA TABLET PO SCH (08:40)
[2018-11-21] MEDS: OMEGA-3 FATTY ACIDS/FISH OIL CAPSULE PO SCH ×2 (08:41→17:00)
[2018-11-21] MEDS: CARBIDOPA/LEVODOPA 25-100MG TABLET PO SCH ×3 (08:41→17:21)
[2018-11-21] MEDS: NIFEdipine XL 90 MG TABSR PO SCH (08:42)
[2018-11-21] MEDS: FLUTICASONE/VILANTEROL 1 EACH BLST.W.DEV INH SCH (09:00)
[2018-11-21 09:09] LABS: CARBON DIOXIDE 28 mmol/L (21-32); CHLORIDE 105 mmol/L (98-107); CREATININE 3.3 mg/dL (0.6-1.3); GLUCOSE 122 mg/dL (74-106); MAGNESIUM 2.1 mg/dL (1.8-2.4); PHOSPHOROUS 2.7 mg/dL (2.5-4.9); POTASSIUM 4.1 mmol/L (3.5-5.1); UREA NITROGEN, BLOOD 54 mg/dL (7-18)
[2018-11-21 09:16] LABS: BASOPHILS % (AUTO) 0.5 % (0.0-2.0); EOSINOPHILS # (AUTO) 0.2 K/uL (0.0-0.7); EOSINOPHILS % (AUTO) 2.1 % (0.0-7.0); HEMATOCRIT 23.2 % (31.2-41.9); LYMPHOCYTES # (AUTO) 0.9 K/uL (20.0-40.0); LYMPHOCYTES % (AUTO) 10.6 % (20.5-51.5); MEAN CORPUSCULAR HEMOGLOBIN 30.4 uug (24.7-32.8); MEAN CORPUSCULAR HGB CONC 35 g/dL (32.3-35.6); MEAN CORPUSCULAR VOLUME 87.5 fL (75.5-95.3); MONOCYTES # (AUTO) 0.7 K/uL (2.0-10.0); MONOCYTES % (AUTO) 8.4 % (0.0-11.0); NEUTROPHILS # (AUTO) 6.8 K/uL (1.8-8.9); NEUTROPHILS % (AUTO) 78.4 % (38.5-71.5); PLATELET COUNT (AUTO) 206 K/uL (179-408); RED BLOOD CELL COUNT(AUTO) 2.65 MIL/uL (3.63-4.92); WHITE BLOOD COUNT (AUTO) 8.6 K/uL (3.8-11.8)
[2018-11-21 10:08] LABS: CALCITRIOL VIT D,1,25 DIHYDROX 25.8 pg/mL (19.9-79.3)
[2018-11-21 11:44] VITALS: BP 115/42
[2018-11-21 15:19] VITALS: BP 147/60
[2018-11-21] MEDS: CYANOCOBALAMIN 100 MCG TABLET PO SCH (17:21)
[2018-11-22] MEDS ORDERED: ALBU2.5V13 NEB (16:15)
[2018-11-22] MEDS ORDERED: FLUT1BLS IH (16:16)
== END 2018-11-21 17:24 | DRG 682 ==
LOC: ER 11:44 → TELE3 13:40
PROVIDERS: ADMIT Internal Medicine; ATTEND Internal Medicine
DX: N17.0 Acute kidney failure with tubular necrosis (principal); I21.A1 Myocardial infarction type 2; E43 Unspecified severe protein-calorie malnutrition; I13.0 Hypertensive heart and chronic kidney disease with heart failure and stage 1 through stage 4 chronic kidney disease, or unspecified chronic kidney disease; I50.32 Chronic diastolic (congestive) heart failure; D68.59 Other primary thrombophilia; K92.2 Gastrointestinal hemorrhage, unspecified; J96.11 Chronic respiratory failure with hypoxia; N18.9 Chronic kidney disease, unspecified; D63.1 Anemia in chronic kidney disease; Z66 Do not resuscitate; E83.52 Hypercalcemia; Z99.81 Dependence on supplemental oxygen; M35.3 Polymyalgia rheumatica; R13.10 Dysphagia, unspecified; G20 Parkinson's disease; F02.80 Dementia in other diseases classified elsewhere, unspecified severity, without behavioral disturbance, psychotic disturbance, mood disturbance, and anxiety; I25.10 Atherosclerotic heart disease of native coronary artery without angina pectoris; I48.0 Paroxysmal atrial fibrillation; E78.5 Hyperlipidemia, unspecified; E03.9 Hypothyroidism, unspecified; Z74.01 Bed confinement status; H91.10 Presbycusis, unspecified ear; I27.20 Pulmonary hypertension, unspecified; Z96.651 Presence of right artificial knee joint; Z68.23 Body mass index [BMI] 23.0-23.9, adult; Z79.890 Hormone replacement therapy; Z85.038 Personal history of other malignant neoplasm of large intestine; Z98.49 Cataract extraction status, unspecified eye; M19.90 Unspecified osteoarthritis, unspecified site; Z90.710 Acquired absence of both cervix and uterus; I08.2 Rheumatic disorders of both aortic and tricuspid valves; M40.209 Unspecified kyphosis, site unspecified; R00.1 Bradycardia, unspecified; T44.7X5A Adverse effect of beta-adrenoreceptor antagonists, initial encounter; Y92.018 Other place in single-family (private) house as the place of occurrence of the external cause; R01.1 Cardiac murmur, unspecified; D50.0 Iron deficiency anemia secondary to blood loss (chronic)
CPT/HCPCS: 36415; 70030-TC; 71045; 76770; 82378; 82652; 83550; 83690; 83735; 83970; 84100; 84155; 84165; 84443; 85025; 92523; 92526; 92610; 93005; 94640; 94664; 97110; 97116; 97165; 97530; 97535; A4663; C1758; G0378; J3490; J3590; J7042

== ENCOUNTER 2018-11-21 17:49 | Inpatient (IN) | payer MEDICARE, BC ==
[~2018-11-21] VITALS: Ht 142.2 cm; Wt 57.8 kg
[~2018-11-21 17:49] MED LIST changes: -ALBU1.25 NEB; +ALBU1.257 NEB; +CYAN100T3 PO; +IPRA0.2S48 IH; -IPRA0.2S6 NEB; +MULT-328 PO; -MULT1TAB73 PO; -POTA-10 PO; -VITAMIN B12 PO
[2018-11-21] MEDS: CARBIDOPA/LEVODOPA 25-100MG TABLET PO SCH (18:53)
[2018-11-21] MEDS: CARVEDILOL 6.25 MG TABLET PO SCH (18:54)
[2018-11-21] MEDS: CYANOCOBALAMIN 100 MCG TABLET PO SCH (18:54)
--- NOTE | 2018-11-21 19:00 | NUR ---
Received patient via hospital bed with 2 nurses around 530pm in stable condition. Alert and oriented x4 Hard of hearing with right ear hearing aid. PARTY COORDINATOR Margaret made aware. MD Parsons notified. Continue oxygen via nasal cannula at 2 LPM with 94% sat. DX: General weakness and deconditioning. On cardiac soft, thickened liquid diet. Continue aspiration precaution. On left forearm G20 IV site. no signs of infiltration. Incontinent in bowel and bladder DNR/DNI. For PT/OT/ST evaluation. Skin redness chest and extremities noted. Family request for psych consult for depression. will continue monitor
[2018-11-21 19:16] VITALS: BP 149/55
[2018-11-21 19:30] VITALS: BP 156/65
[2018-11-21] MEDS: IPRATROPIUM BROMIDE 0.5 MG/2.5 ML NEBU IH SCH (21:00)
[2018-11-21] MEDS: ALBUTEROL SULFATE 1.25 MG/3 ML NEBU NEB SCH (21:00)
--- NOTE | 2018-11-21 23:14 | NUR ---
resting in bed. awake alert and oriented x3-4 forgetful at times. on continous O2 @ 2L via nasal cannula, pulse Ox 94%. PM care done. Vital signs taken and recorded. No respiratory distress noted. Dr Parsons aware of patient's admission. denies any pain nor any discomfort. fall precautions maintained. incontinent of bowel and bladder. kept clean and dry. will monitor refused respiratory treatments. she says she's ok. skin intact, patient has some brownish spots on bilateral lower legs. +1 edema noted on both legs, elevated up on a pillow.
[2018-11-22] MEDS: IPRATROPIUM BROMIDE 0.5 MG/2.5 ML NEBU IH SCH ×2 (00:25→07:58)
[2018-11-22] MEDS: ALBUTEROL SULFATE 1.25 MG/3 ML NEBU NEB SCH ×2 (00:25→07:58)
[2018-11-22 05:56] VITALS: BP 157/59
[2018-11-22] MEDS: LEVOTHYROXINE SODIUM 88 MCG TABLET PO SCH (06:16)
--- NOTE | 2018-11-22 06:24 | NUR ---
quiet night. aaox3-4 on continous O2@2L via nasal cannula. pulse ox 95% tolerated respiratory treatments well. will monitor patient. denies any pain nor any discomfort. incontinent of urine x3 kept clean and dry.
--- NOTE | 2018-11-22 07:33 | NUR ---
patient noted resting in bed with eyes closed, no facial cues of pain, no signs of distress noted, oxygen noted at 2 liters, call light in reach, bed locked and in lowest position, all needs met at this time
[2018-11-22] MEDS: CHOLECALCIFEROL 1,000 UNIT TABLET PO SCH (08:26)
[2018-11-22] MEDS: CARBIDOPA/LEVODOPA 25-100MG TABLET PO SCH ×3 (08:26→17:12)
[2018-11-22] MEDS: MULTIVIT, IRON, MIN NO. 8, FA TABLET PO SCH (08:26)
[2018-11-22] MEDS: NIFEdipine XL 90 MG TABSR PO SCH (08:26)
[2018-11-22] MEDS: FUROSEMIDE 40 MG TABLET PO SCH (08:26)
[2018-11-22] MEDS: CARVEDILOL 6.25 MG TABLET PO SCH ×2 (08:26→17:11)
[2018-11-22 09:00] VITALS: BP 169/58
[2018-11-22] MEDS ORDERED: CALCIUM CARB/VITAMIN D 600-400 MG TABLET PO SCH (09:00)
[2018-11-22 11:15] LABS: CARBON DIOXIDE 28 mmol/L (21-32); CHLORIDE 104 mmol/L (98-107); CREATININE 3.3 mg/dL (0.6-1.3); GLUCOSE 149 mg/dL (74-106); POTASSIUM 3.8 mmol/L (3.5-5.1); UREA NITROGEN, BLOOD 50 mg/dL (7-18)
[2018-11-22 11:18] LABS: MAGNESIUM 2.1 mg/dL (1.8-2.4); PHOSPHOROUS 2.2 mg/dL (2.5-4.9)
[2018-11-22] MEDS ORDERED: IPRATROPIUM BROMIDE 0.5 MG/2.5 ML NEBU IH SCH (11:45)
[2018-11-22] MEDS ORDERED: ALBUTEROL SULFATE 1.25 MG/3 ML NEBU NEB SCH (11:45)
[2018-11-22] MEDS ORDERED: NEUTRA PHOS PACKET PO ONE (15:15)
--- NOTE | 2018-11-22 16:09 | NUR ---
Lab from [facility] called with results of MRSA of the nares, MD Galvan notified with orders for Bactroban ointment of nares x5 days BID, patient placed on contact isolation.
[2018-11-22] MEDS ORDERED: ALBU2.5V13 NEB (16:15)
[2018-11-22] MEDS ORDERED: FLUT1BLS IH (16:16)
[2018-11-22] MEDS: ATORVASTATIN 10 MG TABLET PO SCH (17:11)
[2018-11-22] MEDS: FLUTICASONE/VILANTEROL 1 EACH BLST.W.DEV IH SCH (17:18)
--- NOTE | 2018-11-22 17:30 | NUR ---
Patient had Nuclear Medicine Whole Body Scan procedure done today at 1500 per MD Galvan orders, Consent signed and placed in chart.
[2018-11-22] MEDS: CYANOCOBALAMIN 100 MCG TABLET PO SCH (17:43)
[2018-11-22 19:44] VITALS: BP 140/68
[2018-11-22] MEDS: ALBUTEROL SULFATE 2.5 MG/ 0.5 ML NEBU NEB SCH ×2 (19:47→23:08)
[2018-11-22] MEDS: IPRATROPIUM BROMIDE 0.5 MG/2.5 ML NEBU NEB SCH ×2 (19:47→23:08)
[2018-11-22] MEDS: MUPIROCIN 2% OINT 22 GM TUBE NS SCH (21:16)
[2018-11-22] MEDS: ALPRAZOLAM 0.25 MG TABLET PO PRN (23:00)
--- NOTE | 2018-11-23 01:10 | NUR ---
patient is agitated and confused. Trying to pull off the O2. Xanax given. Continue to monitor. Addendum: 11/24/18 at 0511 by MICHELLE RO RN the date is 11/24/18.
[2018-11-23] MEDS: IPRATROPIUM BROMIDE 0.5 MG/2.5 ML NEBU NEB SCH ×6 (02:30→23:15)
[2018-11-23] MEDS: ALBUTEROL SULFATE 2.5 MG/ 0.5 ML NEBU NEB SCH ×6 (02:30→23:15)
[2018-11-23 06:10] VITALS: BP 118/64
[2018-11-23] MEDS: LEVOTHYROXINE SODIUM 88 MCG TABLET PO SCH (06:39)
[2018-11-23 08:15] LABS: CARBON DIOXIDE 29 mmol/L (21-32); CHLORIDE 103 mmol/L (98-107); CREATININE 3.2 mg/dL (0.6-1.3); GLUCOSE 97 mg/dL (74-106); PHOSPHOROUS 2.9 mg/dL (2.5-4.9); POTASSIUM 4.2 mmol/L (3.5-5.1); UREA NITROGEN, BLOOD 52 mg/dL (7-18)
[2018-11-23 08:30] VITALS: BP 178/62
[2018-11-23] MEDS: MULTIVIT, IRON, MIN NO. 8, FA TABLET PO SCH (08:51)
[2018-11-23] MEDS: FUROSEMIDE 40 MG TABLET PO SCH (08:51)
[2018-11-23] MEDS: CARBIDOPA/LEVODOPA 25-100MG TABLET PO SCH ×3 (08:51→17:09)
[2018-11-23] MEDS: CARVEDILOL 6.25 MG TABLET PO SCH ×2 (08:51→17:10)
[2018-11-23] MEDS: FLUTICASONE/VILANTEROL 1 EACH BLST.W.DEV IH SCH (08:51)
[2018-11-23] MEDS: CHOLECALCIFEROL 1,000 UNIT TABLET PO SCH (08:51)
[2018-11-23] MEDS: NIFEdipine XL 90 MG TABSR PO SCH (08:52)
[2018-11-23] MEDS: MUPIROCIN 2% OINT 22 GM TUBE NS SCH ×2 (08:52→21:08)
--- NOTE | 2018-11-23 09:45 | NUR ---
Received pt. on air mattress bed, comfortable in no distress. A/OX2 and able to make her needs known. Responsive to verbal and tactile stimuli. On 3.5 LPM via NC tolerating well with sat of 99%. All due medications administered as ordered and tolerated well. PIV on RFA#22 remain patent and intact. All pt. needs attended and met promptly. Safety measures in place. Call light and all frequently used items within pt. reach.
--- NOTE | 2018-11-23 13:26 | NUR ---
INTERDISCIPLINARY TEAM CONFERENCE
--- NOTE | 2018-11-23 14:25 | NUR ---
INTERDISCIPLINARY TEAM CONFERENCE
--- NOTE | 2018-11-23 15:30 | NUR ---
RT IN EMERGENCY
[2018-11-23] MEDS: ALPRAZOLAM 0.25 MG TABLET PO PRN (17:09)
[2018-11-23] MEDS: ATORVASTATIN 10 MG TABLET PO SCH (17:09)
[2018-11-23] MEDS: CYANOCOBALAMIN 100 MCG TABLET PO SCH (17:11)
--- NOTE | 2018-11-23 18:20 | NUR ---
End of shift note: All due medications administered as ordered and tolerated well. No sign of acute distress. Kept pt clean and dry throughout this shift. Safety measures maintained. All needs attended and met promptly. Bed in low position, brake and alarm on, side rails up x2 as an enabler. Call light and all frequently used items within pt. reach. Will endorse to next shift accordingly.
--- NOTE | 2018-11-23 19:45 | NUR ---
Patient received in bed. AAO x 2. Confused. No acute distress or SOB was noted. On 4 Lit O2 via NC. On air mattress. No complain of pain at this time. IV line on her right FA g 20, no sign of inflammation. Patient assessed. Safety measures maintained, Fall precaution observed, Bed in low position, brake and alarm on, side rails up x2 for safety. Continue to monitor.
[2018-11-23 20:36] VITALS: BP 137/69
[2018-11-23] MEDS: hydrALAZINE HCL 10 MG TABLET PO PRN (21:14)
--- NOTE | 2018-11-23 21:35 | NUR ---
patient developed high blood pressure, BP: 169/70, HR: 101. Hydralazine 10 mg tab given. Continue to monitor.
[2018-11-24] MEDS: ALPRAZOLAM 0.25 MG TABLET PO PRN (00:51)
[2018-11-24] MEDS: IPRATROPIUM BROMIDE 0.5 MG/2.5 ML NEBU NEB SCH ×3 (02:41→07:55)
[2018-11-24] MEDS: ALBUTEROL SULFATE 2.5 MG/ 0.5 ML NEBU NEB SCH ×3 (02:41→07:55)
[2018-11-24] MEDS: hydrALAZINE HCL 10 MG TABLET PO PRN (03:11)
[2018-11-24] MEDS ORDERED: IV NORMAL SALINE 250 ML BAG IV ONE (03:45)
[2018-11-24] MEDS ORDERED: DILTIAZEM HCL 25 MG IV IV ONE (03:45)
--- NOTE | 2018-11-24 04:35 | NUR ---
patient developed high heart rate. HR: 139-150. contacted epic on-call. received order for ECG, CXR, IV bolus NS 250mg, and Diltiazem 10 mg IV. according to supervisor fryer farm the patient needs to be on monitor for that. Called Dr. Qiu again and got order for transferring patient to ER. Administered IV NS, called RT for ECG, and transferred patient to ER. Belongings sent to ER.
[2018-11-24] MEDS ORDERED: ONDA4VIA52 IV (05:30)
[2018-11-24] MEDS ORDERED: Z GUARD REMEDY PASTE TOP (05:30)
[2018-11-24] MEDS ORDERED: ACET-2154 PO (05:30)
[2018-11-24] MEDS ORDERED: MORP2VIA IV (05:30)
[2018-11-24] MEDS ORDERED: PIPERACILLIN/TAZO 2.25 GM VIAL ONE (05:52)
[2018-11-26] MEDS ORDERED: CLONIDINE TTS 2 PATCH TD SCH (09:00)
[2018-11-26 20:24] VITALS: BP 107/52
== END 2018-11-24 04:35 | disposition short-term general hospital (02) | DRG 280 ==
LOC: OBSER 11-24 04:30
PROVIDERS: ADMIT Physical Medicine & Rehabilitation Pain Medicine; ATTEND Physical Medicine & Rehabilitation Pain Medicine
DX: I21.A1 Myocardial infarction type 2 (principal); N17.0 Acute kidney failure with tubular necrosis; D68.59 Other primary thrombophilia; I13.0 Hypertensive heart and chronic kidney disease with heart failure and stage 1 through stage 4 chronic kidney disease, or unspecified chronic kidney disease; I50.32 Chronic diastolic (congestive) heart failure; J96.11 Chronic respiratory failure with hypoxia; R00.0 Tachycardia, unspecified; E03.9 Hypothyroidism, unspecified; E78.5 Hyperlipidemia, unspecified; I48.0 Paroxysmal atrial fibrillation; G20 Parkinson's disease; I25.10 Atherosclerotic heart disease of native coronary artery without angina pectoris; N18.9 Chronic kidney disease, unspecified; Z96.651 Presence of right artificial knee joint; Z90.710 Acquired absence of both cervix and uterus; M19.90 Unspecified osteoarthritis, unspecified site; I27.20 Pulmonary hypertension, unspecified; Z99.81 Dependence on supplemental oxygen; R13.10 Dysphagia, unspecified; Z85.038 Personal history of other malignant neoplasm of large intestine; Z96.641 Presence of right artificial hip joint; R54 Age-related physical debility; D63.1 Anemia in chronic kidney disease
CPT/HCPCS: 36415; 71045; 78306; 82330; 83735; 84100; 92523; 92526; 92610; 93005; 94640; 94664; 97110; 97112; 97116; 97165; 97530; A4663; A9503; J2543; J3490; J3590; J7050

== ENCOUNTER 2018-11-24 04:56 | Inpatient (IN) | payer MEDICARE, BC ==
[2018-11-24] VITALS (13 sets, daily range): BP systolic 88–128; BP diastolic 40–69
[~2018-11-24] VITALS: Ht 157.5 cm; Wt 60.3 kg
[~2018-11-24 04:56] MED LIST changes: -ALBU1.257 NEB; +ALBU2.5V13 NEB; +FLUT1BLS IH
--- NOTE | 2018-11-24 05:00 | NUR ---
Dr. Perez at bedside for MSE.
[2018-11-24] MEDS ORDERED: DILTIAZEM HCL 25 MG IV ONE ×3 (05:07→12:15)
[2018-11-24] MEDS ORDERED: DILTIAZEM HCL 25 MG IV IV ONE ×3 (05:15→11:45)
--- NOTE | 2018-11-24 05:15 | NUR ---
O2 Sat on 4L/min @ 88%. MD notified. Increased O2 to 6L/min via nasal cannula.
--- NOTE | 2018-11-24 05:18 | NUR ---
Pt's O2 sat @6L/min via nasal cannula @91%. MD notified. Increased O2 to 7L/min.
[2018-11-24 05:25] LABS: BASOPHILS # (AUTO) 0.1 K/uL (0.0-8.0); BASOPHILS % (AUTO) 0.3 % (0.0-2.0); HEMATOCRIT 24.2 % (31.2-41.9); HEMOGLOBIN 8.1 g/dL (10.9-14.3); LYMPHOCYTES # (AUTO) 0.5 K/uL (20.0-40.0); LYMPHOCYTES % (AUTO) 3.1 % (20.5-51.5); MEAN CORPUSCULAR HEMOGLOBIN 29.4 uug (24.7-32.8); MEAN CORPUSCULAR HGB CONC 34 g/dL (32.3-35.6); MEAN CORPUSCULAR VOLUME 87.8 fL (75.5-95.3); MONOCYTES # (AUTO) 0.7 K/uL (2.0-10.0); MONOCYTES % (AUTO) 4.5 % (0.0-11.0); NEUTROPHILS # (AUTO) 15.5 K/uL (1.8-8.9); NEUTROPHILS % (AUTO) 92.1 % (38.5-71.5); PLATELET COUNT (AUTO) 214 K/uL (179-408); RED BLOOD CELL COUNT(AUTO) 2.76 MIL/uL (3.63-4.92); WHITE BLOOD COUNT (AUTO) 16.8 K/uL (3.8-11.8)
[2018-11-24] MEDS ORDERED: MORP2VIA IV (05:30)
[2018-11-24] MEDS ORDERED: Z GUARD REMEDY PASTE TOP (05:30)
[2018-11-24] MEDS ORDERED: ONDA4VIA52 IV (05:30)
[2018-11-24] MEDS ORDERED: ACET-2154 PO (05:30)
[2018-11-24] MEDS ORDERED: VANCOMYCIN 1G/D5W 200 ML PIGGYBACK IV ONE (05:45)
[2018-11-24] MEDS ORDERED: PIPERACILLIN/TAZO 0.75 G in IV DEXTROSE 5% 50 ML IV PRN (05:45)
[2018-11-24 05:52] LABS: ALANINE AMINOTRANSFERASE 9 U/L (14-59); ALKALINE PHOSPHATASE 47 U/L (50-136); ASPARTATE AMINOTRANSFERASE 29 U/L (15-37); BILIRUBIN,DIRECT 0.1 mg/dL (0.0-0.2); BILIRUBIN,TOTAL 0.5 mg/dL (0.2-1.0); CARBON DIOXIDE 27 mmol/L (21-32); CHLORIDE 103 mmol/L (98-107); CREATININE 3.9 mg/dL (0.6-1.3); GLUCOSE 135 mg/dL (74-106); POTASSIUM 4.5 mmol/L (3.5-5.1); UREA NITROGEN, BLOOD 70 mg/dL (7-18)
--- NOTE | 2018-11-24 06:11 | NUR ---
Called [facility] to page Dr. Qiu.
[2018-11-24] MEDS ORDERED: IV NS 1000 ML 1,000 ML IV PRN (06:15)
[2018-11-24] MEDS ORDERED: Z GUARD REMEDY PASTE 57 GM TUBE TOP PRN (06:15)
[2018-11-24] MEDS ORDERED: ACETAMINOPHEN 325 MG TABLET PO PRN (06:15)
[2018-11-24] MEDS ORDERED: ONDANSETRON 4 MG/2 ML VIAL IV PRN (06:15)
[2018-11-24] MEDS ORDERED: MAGNESIUM HYDROXIDE 30 ML LIQUID UDC PO PRN (06:15)
[2018-11-24] MEDS ORDERED: ENOXAPARIN SODIUM 40 MG/0.4 ML DISP.SYRIN SQ SCH (06:15)
--- NOTE | 2018-11-24 06:15 | NUR ---
Dr. Perez on panel call with Dr. Qiu. Patient accepted for admission to [facility], Diagnosis Pneumonia, Acute respiratory failure, and Afib with RVR.
[2018-11-24] MEDS ORDERED: VANCOMYCIN IV 200 ML ONE (06:22)
[2018-11-24 06:29] LABS: MAGNESIUM 2.3 mg/dL (1.8-2.4)
[2018-11-24] MEDS ORDERED: VANCOMYCIN IV 750 MG in IV DEXTROSE 5% 250 ML IV SCH (06:30)
--- NOTE | 2018-11-24 06:30 | NUR ---
PATIENT CAME IN FROM ARU WITH ONLY RIGHT HEARING AID,X2 GENERATION TECHNICIAN AND A PAIR OF SLIPPER
[2018-11-24 06:37] LABS: THYROID STIMULATING HORMONE 4.358 mIU/mL (0.358-3.740)
--- NOTE | 2018-11-24 06:57 | NUR ---
Report given to Dioni stringer.
--- NOTE | 2018-11-24 07:24 | NUR ---
PT IS IN BED #1A, RESTING IN BED COMFORTABLY, CONTINUE TO MONITOR THE PT.
[2018-11-24] MEDS: ALBUTEROL SULFATE 2.5 MG/3 ML NEBU NEB SCH ×2 (08:11→11:27)
[2018-11-24] MEDS ORDERED: ALBUTEROL SULFATE 2.5 MG/3 ML NEBU ONE ×2 (08:14→11:31)
[2018-11-24] MEDS ORDERED: DILTIAZEM HCL IV 10 MG in IV DEXTROSE 5% 100 ML IV ONE (08:30)
[2018-11-24] MEDS ORDERED: CLONIDINE TTS 2 PATCH TD SCH (12:00)
[2018-11-24] MEDS ORDERED: ONDANSETRON 4 MG/2 ML VIAL IV SCH (12:00)
[2018-11-24] MEDS ORDERED: ACETAMINOPHEN 325 MG TABLET PO SCH (12:00)
--- NOTE | 2018-11-24 12:11 | NUR ---
DR GILBERT AND DR CARLOS EVALUATED THE PT.
--- NOTE | 2018-11-24 12:29 | NUR ---
REPORT WAS GIVEN TO SECURITY DEVELOPER. PT WAS TRANSFERED TO CCU ROOM #2.
[2018-11-24] MEDS ORDERED: ENOXAPARIN SODIUM 30 MG/0.3 ML DISP.SYRIN SUBCUT ONE (13:04)
--- NOTE | 2018-11-24 13:30 | NUR ---
ADMITTED AN 88 YO FEMALE FROM ER VIA BED WITH A C/O SHORTNESS OF BREATHE AND RAPID IRREGULAR HEARTBEAT IN THE 130'S. PT IS VERY PLEASANT, AWAKE AND ORIENTED X3 O2 ON 5LNC, SAT OF 93%. NO APPARENT RESPIRATORY DISTRESS NOTED. LUNGS ARE CLEAR DECREASED BS AT THE BASES. PT HAS GENERALIZED WEAKNESS. AFEBRILE.
[2018-11-24] MEDS ORDERED: PIPERACILLIN SODIUM/TAZOBACTAM 4.5 G in IV DEXTROSE 5% 50 ML IV SCH (14:00)
--- NOTE | 2018-11-24 14:00 | NUR ---
MIDLINE IV ACCESS ORDERED AND INSERTED BY PICC LINE NURSE ON THE RIGHT UPPER ARM, PATENT AND INTACT.
[2018-11-24] MEDS ORDERED: PIPERACILLIN/TAZOBACTAM/D5W 2.25 G in PREMIXED 1 EACH IV SCH (14:15)
[2018-11-24] MEDS: DILTIAZEM HCL 30 MG TABLET PO SCH ×2 (14:30→18:06)
[2018-11-24] MEDS: ENOXAPARIN SODIUM 30 MG/0.3 ML DISP.SYRIN SUBCUT SCH (14:31)
--- NOTE | 2018-11-24 14:46 | NUR ---
CLINICAL PHARMACY NOTE: VANCOMYCIN PHARMACY TO DOSE Subjective: To start vancomycin in this 88 y/o female for indication of "suspected infection" (Scr 3.9, wbc 16.8). Pt has acute on chronic kidney disease Objective: weight 49 kg height 157cm BUN 70 Scr 3.9 (ARF, no HD yet) Wbc 16.8 temp 98.7 1gm vanco 11/24 @ ~0600 give in ER Assessment/Plan As pt is in ARF and not on dialysis yet, will dose per level for now. Last 1gm vanco given today around 0600. No further dose to give, next random ordered with am labs tomorrow. Will check in am and redose as needed. Will follow daily if HD is started as well. Will follow
--- NOTE | 2018-11-24 15:00 | NUR ---
PT IS INCONTINENT AND BLADDER IS SLIGHTLY DISTENDED. INSERTED A FOLEYCATHETER ORDERED AND DRAINING CLEAR YELLOW URINE.
[2018-11-24] MEDS ORDERED: ALBUTEROL SULFATE 2.5 MG/ 0.5 ML NEBU NEB SCH (15:30)
[2018-11-24] MEDS ORDERED: IPRATROPIUM BROMIDE 0.5 MG/2.5 ML NEBU IH SCH (15:30)
[2018-11-24 17:49] LABS: *BILIRUBIN,URIN NEGATIVE (NEGATIVE); *BLOOD, URINE NEGATIVE (NEGATIVE); *CLARITY,URINE SLIGHTLY CLOUDY (CLEAR); *COLOR,URINE YELLOW (YELLOW); *KETONES,URINE NEGATIVE (NEGATIVE); *UROBILINOGEN,URINE 0.2 E.U./dl (NORMAL); LEUKOCYTE ESTERASE ,URINE TRACE (NEGATIVE); NITRITE, URINE NEGATIVE (NEGATIVE); PH,URINE 5.5 (5.0-8.0); UGLUCOSE NEGATIVE (NEGATIVE)
[2018-11-24 17:55] LABS: *CREATININE,URINE 110.3 mg/dL (30-125); *URINE TOTAL PROTEIN RANDOM 72.9 mg/dL (<150/24HR)
[2018-11-24] MEDS: CARBIDOPA/LEVODOPA 25-100MG TABLET PO SCH (18:01)
[2018-11-24] MEDS: CARVEDILOL 6.25 MG TABLET PO SCH (18:02)
[2018-11-24] MEDS: CYANOCOBALAMIN 100 MCG TABLET PO SCH (18:05)
[2018-11-24] MEDS: ATORVASTATIN 10 MG TABLET PO SCH (18:05)
[2018-11-24 18:28] LABS: SQUAMOUS EPITHELIAL CELL,UR FEW /HPF (NONE SEEN)
[2018-11-24 18:29] LABS: MUCUS,URINE MODERATE /LPF (0-FEW); URINE AMORPHOUS URATE MANY /HPF
[2018-11-24] MEDS: CEFEPIME HCL 1 G in IV DEXTROSE 5% 50 ML IV SCH (19:27)
--- NOTE | 2018-11-24 20:00 | NUR ---
Alert, cooperative. Noted poor energy reserves. Readily gets short of breath with position and turn activities in bed. Difficult to place in a comfortable position in bed due to kyphosis. O2 5L/minute in use. Humidifier added to O2 line. Positional O2 sat readings, pulse ox device changed to different sites at earlobe and finger. Monitor remains AFib controlled rate for now. BP labile. Closely monitored. Nursing comfort measures observed. HOB, aspiration precautions maintained. Please see CCU flowsheet for full assessment and clinical data.
[2018-11-24] MEDS: ALBUTEROL SULFATE 2.5 MG/3 ML NEBU NEB PRN (21:07)
[2018-11-24] MEDS: IPRATROPIUM BROMIDE 0.5 MG/2.5 ML NEBU IH PRN (21:08)
[2018-11-25] VITALS (24 sets, daily range): BP systolic 95–138; BP diastolic 44–76
[2018-11-25] MEDS: DILTIAZEM HCL 30 MG TABLET PO SCH ×2 (00:03→06:13)
[2018-11-25] MEDS: HYDROCODONE/APAP 5-325MG TABLET PO PRN ×2 (00:05→22:15)
--- NOTE | 2018-11-25 00:30 | NUR ---
Had episode of neck pain, relieved with PO [place]. Nursing comfort measures maintained.
--- NOTE | 2018-11-25 04:00 | NUR ---
Has been sleeping. In no apparent acute distress.
[2018-11-25 04:53] LABS: IRON, SERUM 18 ug/dL (50-175)
[2018-11-25 05:00] LABS: THYROID STIMULATING HORMONE 11.107 mIU/mL (0.358-3.740)
[2018-11-25 05:02] LABS: ALANINE AMINOTRANSFERASE 9 U/L (14-59); ALKALINE PHOSPHATASE 42 U/L (50-136); ASPARTATE AMINOTRANSFERASE 19 U/L (15-37); BILIRUBIN,TOTAL 0.4 mg/dL (0.2-1.0); CARBON DIOXIDE 27 mmol/L (21-32); CHLORIDE 103 mmol/L (98-107); FERRITIN 283 ng/mL (8-252); GLUCOSE 84 mg/dL (74-106); MAGNESIUM 2.1 mg/dL (1.8-2.4); PHOSPHOROUS 3.7 mg/dL (2.5-4.9); POTASSIUM 4.1 mmol/L (3.5-5.1); TOTAL PROTEIN, SERUM 6.6 g/dL (6.4-8.2); UREA NITROGEN, BLOOD 74 mg/dL (7-18)
[2018-11-25 05:03] LABS: CHOLESTEROL 116 mg/dL (<200); HDL CHOLESTEROL 52 mg/dL (40-60); TRIGLYCERIDES 82 MG/DL (30-150)
[2018-11-25 05:19] LABS: VANCOMYCIN,RANDOM 14.9 ug/mL (18.0-26.0)
[2018-11-25 05:21] LABS: BASOPHILS % (AUTO) 0.3 % (0.0-2.0); EOSINOPHILS # (AUTO) 0.1 K/uL (0.0-0.7); EOSINOPHILS % (AUTO) 1.4 % (0.0-7.0); LYMPHOCYTES # (AUTO) 0.7 K/uL (20.0-40.0); LYMPHOCYTES % (AUTO) 6.3 % (20.5-51.5); MEAN CORPUSCULAR HEMOGLOBIN 30.4 uug (24.7-32.8); MEAN CORPUSCULAR HGB CONC 35 g/dL (32.3-35.6); MEAN CORPUSCULAR VOLUME 86.7 fL (75.5-95.3); MONOCYTES # (AUTO) 0.6 K/uL (2.0-10.0); MONOCYTES % (AUTO) 5.8 % (0.0-11.0); NEUTROPHILS % (AUTO) 86.2 % (38.5-71.5); PLATELET COUNT (AUTO) 201 K/uL (179-408); WHITE BLOOD COUNT (AUTO) 10.5 K/uL (3.8-11.8)
[2018-11-25 05:26] LABS: RED BLOOD CELL COUNT(AUTO) 2.43 MIL/uL (3.63-4.92)
[2018-11-25 05:27] LABS: HEMOGLOBIN 7.4 g/dL (10.9-14.3)
[2018-11-25] MEDS: LEVOTHYROXINE SODIUM 88 MCG TABLET PO SCH (06:13)
[2018-11-25] MEDS: CARBIDOPA/LEVODOPA 25-100MG TABLET PO SCH ×4 (06:43→17:24)
--- NOTE | 2018-11-25 07:30 | NUR ---
RECIEVED PT LYING IN BED, AWAKE AND ORIENTED X 3. NO APPARENT RESPIRATORY DISTRESS NOTED. O2 ON 4LNC, SAT 97% HR IS STILL AFIB WITN CONTROLLED VENTRICULAR RESPONSE. CONDITION IS STABLE.
[2018-11-25 07:57] LABS: ABG BASE EXCESS 0.4 mmol/L; ABG HCO3 24.8 mmol/L; ABG PCO2 38.7 mmHg (35.0-45.0); ABG PH 7.425 (7.350-7.450); ABG PO2 53.1 mmHg (75.0-100.0); ABG SITE RIGHT RADIAL; ABG TOTAL HEMOGLOBIN 5.8 G/dL (12.0-16.0); COHb 1.9 % (0.5-1.5); MetHb 1.4 % (0.0-1.5); O2Hb 86.8 % (94.0-97.0)
--- NOTE | 2018-11-25 08:33 | NUR ---
CLINICAL PHARMACY NOTE: VANCOMYCIN PHARMACY TO DOSE Subjective: To continue vancomycin in this 88 y/o female for indication of sepsis(possibly due to bronchitis, HAP or aspiration). Pt has acute on chronic kidney disease Objective: weight 49 kg height 157cm BUN 74 Scr 4.0(ARF, no HD yet) Wbc 10.5 temp 98.2 Vancomycin random today at 0600:14.9 Assessment/Plan As pt is in ARF and not on dialysis yet, will dose per level for now. Since level is under 20, will give Vancomycin 1gram x1 today at 0900. Next random not ordered yet(will order upon checking tomorrow am labs). Will follow daily if HD is started as well.
[2018-11-25] MEDS ORDERED: VANCOMYCIN IV 1 G in PREMIXED 0 EACH IV ONE (09:00)
[2018-11-25] MEDS: CARVEDILOL 6.25 MG TABLET PO SCH ×2 (09:27→17:24)
[2018-11-25] MEDS: CALCIUM CARB/VITAMIN D 600-400 MG TABLET PO SCH (09:28)
[2018-11-25] MEDS: FLUTICASONE/VILANTEROL 1 EACH BLST.W.DEV IH SCH (09:28)
[2018-11-25] MEDS: ENOXAPARIN SODIUM 30 MG/0.3 ML DISP.SYRIN SUBCUT SCH (09:30)
[2018-11-25] MEDS: CEFEPIME HCL 1 G in IV DEXTROSE 5% 50 ML IV SCH (09:33)
[2018-11-25] MEDS: ALBUTEROL SULFATE 2.5 MG/3 ML NEBU NEB PRN ×2 (10:06→23:13)
[2018-11-25] MEDS: IPRATROPIUM BROMIDE 0.5 MG/2.5 ML NEBU IH PRN ×2 (10:06→23:13)
--- NOTE | 2018-11-25 11:00 | NUR ---
PT UP IN BED WITH PT, TOLERATED ABOUT 3 STEPS WITH A WALKER. NO APPARENT SOB NOTED.
[2018-11-25] MEDS ORDERED: FUROSEMIDE 40 MG/4 ML VIAL IV ONE (11:15)
--- NOTE | 2018-11-25 14:00 | NUR ---
PT HAS ONE BIG HUGE BM, SOFT BROWN STOOLS. PT FEELS A LOT BETTER.
[2018-11-25] MEDS: DILTIAZEM HCL CD 120 MG CAP.SR.24H PO SCH (14:38)
--- NOTE | 2018-11-25 17:00 | NUR ---
SEEN AND EXAMINED BY DR HUYNH WITH NEW ORDERS. URINE FOR UA AND CS SENT TO LAB ORDERED AND INFLUENZA CX OF THE NARES DONE AND SENT TO LAB ORDERED.
[2018-11-25] MEDS: ATORVASTATIN 10 MG TABLET PO SCH (17:26)
[2018-11-25] MEDS: CYANOCOBALAMIN 100 MCG TABLET PO SCH (17:27)
--- NOTE | 2018-11-25 20:00 | NUR ---
Resting in bed. Alert, oriented. States had a good day. Noted pt with poor energy reserves. Readily gets short of breath with turning and positioning in bed. Nursing care activities grouped together to allow for maximum rest and comfort. O2 4L/min in use and noted saturations to be excellent. Noted occasional bouts of non-productive cough. Monitor remains Atrial fib with controlled rate. Please see CCU flowsheet for full assessment and clinical data.
--- NOTE | 2018-11-25 21:15 | NUR ---
Son here for brief visit. Updated with pt condition. Son appreciative of care and information.
[2018-11-26] VITALS (10 sets, daily range): BP systolic 93–139; BP diastolic 42–75
--- NOTE | 2018-11-26 05:00 | NUR ---
Has been sleeping. Wants TV on at all times especially at night time. Stable VS and rhythm. Lab works drawn by [employer] Denies pain/discomfort; did receive [place] at [facility] for neck pain, with immediate relief.
[2018-11-26 05:41] LABS: EOSINOPHILS # (AUTO) 0.2 K/uL (0.0-0.7); MONOCYTES # (AUTO) 0.6 K/uL (2.0-10.0)
[2018-11-26 05:43] LABS: BASOPHILS # (AUTO) 0.1 K/uL (0.0-8.0); BASOPHILS % (AUTO) 0.7 % (0.0-2.0); EOSINOPHILS % (AUTO) 2.6 % (0.0-7.0); LYMPHOCYTES # (AUTO) 0.6 K/uL (20.0-40.0); LYMPHOCYTES % (AUTO) 8.5 % (20.5-51.5); MEAN CORPUSCULAR HEMOGLOBIN 30.5 uug (24.7-32.8); MEAN CORPUSCULAR HGB CONC 35 g/dL (32.3-35.6); MEAN CORPUSCULAR VOLUME 87.8 fL (75.5-95.3); NEUTROPHILS # (AUTO) 6.1 K/uL (1.8-8.9); NEUTROPHILS % (AUTO) 80.2 % (38.5-71.5); PLATELET COUNT (AUTO) 222 K/uL (179-408)
[2018-11-26 05:48] LABS: CARBON DIOXIDE 26 mmol/L (21-32); CHLORIDE 106 mmol/L (98-107); CREATININE 3.9 mg/dL (0.6-1.3); GLUCOSE 78 mg/dL (74-106); MAGNESIUM 2.2 mg/dL (1.8-2.4); PHOSPHOROUS 3.4 mg/dL (2.5-4.9); POTASSIUM 3.9 mmol/L (3.5-5.1); UREA NITROGEN, BLOOD 77 mg/dL (7-18)
[2018-11-26 06:00] LABS: HEMATOCRIT 20.2 % (31.2-41.9); WHITE BLOOD COUNT (AUTO) 7.6 K/uL (3.8-11.8)
--- NOTE | 2018-11-26 06:00 | NUR ---
Noted pt somewhat disoriented this AM, thinks she is "tied down with a lot of things." Reality-orientation done and pt made aware of presence of medical equipments like BP cuff,O2 sat,EKG wires. PALA, hearing aid kept safe in designated container due to pt tends to take it off and puts it on bed linens.
[2018-11-26] MEDS: LEVOTHYROXINE SODIUM 88 MCG TABLET PO SCH (06:25)
[2018-11-26] MEDS: CARBIDOPA/LEVODOPA 25-100MG TABLET PO SCH ×4 (06:38→16:30)
[2018-11-26] MEDS: CALCIUM CARB/VITAMIN D 600-400 MG TABLET PO SCH (08:01)
[2018-11-26] MEDS: FLUTICASONE/VILANTEROL 1 EACH BLST.W.DEV IH SCH (08:01)
[2018-11-26] MEDS: DILTIAZEM HCL CD 120 MG CAP.SR.24H PO SCH (08:03)
[2018-11-26] MEDS: CARVEDILOL 6.25 MG TABLET PO SCH ×2 (08:03→16:52)
[2018-11-26] MEDS: CEFEPIME HCL 1 G in IV DEXTROSE 5% 50 ML IV SCH (08:04)
[2018-11-26] MEDS: ENOXAPARIN SODIUM 30 MG/0.3 ML DISP.SYRIN SUBCUT SCH (08:04)
--- NOTE | 2018-11-26 09:43 | NUR ---
Physical therapy here to see pt.
--- NOTE | 2018-11-26 10:09 | NUR ---
HOLLY Vigil here to see pt. Full report given. New orders received.
--- NOTE | 2018-11-26 10:44 | NUR ---
Dr. Garza here to see pt. Full report given. New orders received.
[2018-11-26] MEDS ORDERED: EPOETIN ALFA 10,000 UNITS/ML VIAL IV ONE (11:30)
[2018-11-26 12:07] LABS: ABG BASE EXCESS 0.8 mmol/L; ABG HCO3 25.1 mmol/L; ABG PH 7.427 (7.350-7.450); ABG PO2 65.8 mmHg (75.0-100.0); ABG SITE LEFT RADIAL; ABG TOTAL HEMOGLOBIN 8.7 G/dL (12.0-16.0); COHb 0.9 % (0.5-1.5); MetHb 0.6 % (0.0-1.5); O2Hb 91.8 % (94.0-97.0); VENT MODE Nasal Cannula
--- NOTE | 2018-11-26 12:57 | NUR ---
Speech therapist here to see pt for swallow eval.
[2018-11-26] MEDS: SOD FERRIC GLUC COMPLX/SUCROSE 125 MG in IV NORMAL SALINE 100 ML IV SCH (13:06)
--- NOTE | 2018-11-26 14:54 | NUR ---
Patient seen and evaluated on 11/24/18. Awaiting results of S/T swallowing evaluation. Addendum: 11/26/18 at [address] Amended: Links added.
--- NOTE | 2018-11-26 15:19 | NUR ---
Pt left the unit for video swallow with radiologist. Pt stable and nad noted upon leaving the unit.
--- NOTE | 2018-11-26 15:58 | NUR ---
Pt returned from swallow eval. Pt stable and nad noted upon returning. Per speech therapist, pt to remain NPO due to aspiration on levels.
--- NOTE | 2018-11-26 16:30 | NUR ---
Call made to Dr. Garza regarding pt's failed swallow eval. Awaiting return call.
[2018-11-26] MEDS: ATORVASTATIN 10 MG TABLET PO SCH (16:53)
[2018-11-26] MEDS: CYANOCOBALAMIN 100 MCG TABLET PO SCH (16:53)
--- NOTE | 2018-11-26 17:13 | NUR ---
Dr. Clarke here to see pt. Full report given. No new orders received.
--- NOTE | 2018-11-26 18:13 | NUR ---
Full telephone SBAR report given to CHANDAN Powers.
--- NOTE | 2018-11-26 18:32 | NUR ---
Pt left the unit with RN and INDUSTRIAL EQUIPMENT MECHANIC. All belonging reviewed and brought with the pt. Pt stable and nad noted upon leaving the unit.
--- NOTE | 2018-11-26 18:35 | NUR ---
PATIENT HERE FROM THE CCU BY BED TO ROOM 209 ADJUSTED ORIENTED AND MADE COMFORTABLE.REMAIN ON O2 AT 4L/M BY NASAL CANULLA WITH NO SHORTNESS OF BREATH AT THIS TIME.TELE IS A FIB CONTROLLED.PATIENT IS NPO P[ER REPORT MADE COMFORTABLE AND WILL CONTINUE TO OBSERVE AND ENDORSE TO THE ON COMING SHIFT.
--- NOTE | 2018-11-26 19:25 | NUR ---
RECEIVED PT AWAKE ON BED. FAMILY AND CAREGIVER ON BEDSIDE. PT SHOWS NO SIGNS OF ACUTE DISTRESS. IV INTACT. SAFETY AND COMFORT PROVIDED. WILL CONTINUE TO MONITOR.
[2018-11-27] VITALS: BP 154/52
[2018-11-27] MEDS ORDERED: IV D5 1/2 NS 1000 ML 1,000 ML IV PRN (00:15)
[2018-11-27 04:00] VITALS: BP 159/57
[2018-11-27 06:04] LABS: BASOPHILS % (AUTO) 0.5 % (0.0-2.0); EOSINOPHILS # (AUTO) 0.2 K/uL (0.0-0.7); EOSINOPHILS % (AUTO) 2.5 % (0.0-7.0); HEMATOCRIT 24.1 % (31.2-41.9); HEMOGLOBIN 8.4 g/dL (10.9-14.3); LYMPHOCYTES # (AUTO) 0.5 K/uL (20.0-40.0); LYMPHOCYTES % (AUTO) 5.8 % (20.5-51.5); MEAN CORPUSCULAR HEMOGLOBIN 30.6 uug (24.7-32.8); MEAN CORPUSCULAR HGB CONC 35 g/dL (32.3-35.6); MEAN CORPUSCULAR VOLUME 88.2 fL (75.5-95.3); MONOCYTES # (AUTO) 0.6 K/uL (2.0-10.0); MONOCYTES % (AUTO) 7.9 % (0.0-11.0); NEUTROPHILS # (AUTO) 6.7 K/uL (1.8-8.9); NEUTROPHILS % (AUTO) 83.3 % (38.5-71.5); PLATELET COUNT (AUTO) 276 K/uL (179-408); RED BLOOD CELL COUNT(AUTO) 2.74 MIL/uL (3.63-4.92)
[2018-11-27 06:14] LABS: ALANINE AMINOTRANSFERASE 12 U/L (14-59); ALKALINE PHOSPHATASE 52 U/L (50-136); ASPARTATE AMINOTRANSFERASE 26 U/L (15-37); BILIRUBIN,TOTAL 0.4 mg/dL (0.2-1.0); CARBON DIOXIDE 28 mmol/L (21-32); CHLORIDE 105 mmol/L (98-107); CREATININE 3.4 mg/dL (0.6-1.3); GLUCOSE 110 mg/dL (74-106); MAGNESIUM 2.2 mg/dL (1.8-2.4); PHOSPHOROUS 2.5 mg/dL (2.5-4.9); POTASSIUM 3.4 mmol/L (3.5-5.1); UREA NITROGEN, BLOOD 67 mg/dL (7-18)
[2018-11-27] MEDS: LEVOTHYROXINE SODIUM 88 MCG TABLET PO SCH (06:21)
--- NOTE | 2018-11-27 06:30 | NUR ---
PT ON NPO SO MEDICATION IS NON ADMINISTERED. PT STABLE. IN NO ACUTE DISTRESS.
[2018-11-27] MEDS: CARBIDOPA/LEVODOPA 25-100MG TABLET PO SCH ×4 (06:40→16:06)
--- NOTE | 2018-11-27 06:42 | NUR ---
PT'S FAMILY, DR. AGRAWAL CALLED AND STATED THAT HE IS CONCERNED ABOUT THE NUTRITION OF THE PT SINCE SHE FAILED VIDEO SWALLOW; PER DR. AGRAWAL HE TRIED TO CALL DR GROVER DURING THE DAY BUT MD HAS NOT CALL THEM BACK. I TOLD HIM THAT I WILL CALL/INFORM DR NOLAN WHO IS MOLDED GOODS INSPECTOR TRIMMER. I ALSO TOLD DR AGRAWAL IF HE WANTS ME TO SUGGEST TUBE FEEDING TO THE MD. PER DR AGRAWAL IVF IS OKAY FOR NOW. DR. NOLAN WAS INFORMED AND HE ORDERED D5 1/2 NS AT 65CC/HR AND STARTED ACCORDINGLY. PT SLEPT THROUGHOUT THE SHIFT. PT SHOWS NO SIGNS OF ACUTE DISTRESS. IV INTACT. NEWMAN CATHETER INTACT. PRESCRIBED MEDICATION GIVEN AND PT TOLERATED IT WELL. PT TURNED AND REPOSITIONED. SAFETY AND COMFORT PROVIDED. WILL ENDORSE ACCORDINGLY TO INCOMING NURSE FOR CONTINUITY OF CARE.
[2018-11-27] MEDS: ENOXAPARIN SODIUM 30 MG/0.3 ML DISP.SYRIN SUBCUT SCH (08:23)
[2018-11-27] MEDS: DILTIAZEM HCL CD 120 MG CAP.SR.24H PO SCH (08:24)
[2018-11-27] MEDS: CALCIUM CARB/VITAMIN D 600-400 MG TABLET PO SCH (08:24)
[2018-11-27] MEDS: CARVEDILOL 6.25 MG TABLET PO SCH ×2 (08:25→16:06)
--- NOTE | 2018-11-27 08:30 | NUR ---
AWAKE ALERT AND ORIENTED BUT FORGETFUL VERBALISES CERTAIN NEEDS REQUIRES MAX ASSIST FOR ALL ADL TURNED AND REPOSITIONED Q2H ON FIRST STEP GILMAR WITH TX TO SACRAL AREA TO PREVENT FROM GETTING WORSE SHE IS NPO ORDERED WITH IVF ORDERED O2 IN PROGRESS WITH NO SOB NOT IN DISTRESS AT THIS TIME.
[2018-11-27] MEDS: FLUTICASONE/VILANTEROL 1 EACH BLST.W.DEV IH SCH (08:46)
[2018-11-27] MEDS: CEFEPIME HCL 1 G in IV DEXTROSE 5% 50 ML IV SCH (08:46)
--- NOTE | 2018-11-27 10:15 | NUR ---
DR MOHR HERE TO SEE PATIENT AND WAS PROVIDED WITH PATIENTS SONS PHONE NUMBER ARACELIS STATED THAT DR GROVER ALREADY SPOKE WITH ARACELIS VANEGAS SO NO NEED FOR HIM TO TALK TO ARACELIS.
--- NOTE | 2018-11-27 10:36 | NUR ---
BLOOD PRESSURE AT THIS TIME IS 176/50 DR MOHR NOTIFIED AND HE STATED TO RESTART THE CATAPRES TTS 2 AND NOTED.
[2018-11-27 11:00] VITALS: BP 148/60
[2018-11-27] MEDS ORDERED: CLONIDINE TTS 2 PATCH TD SCH (11:00)
[2018-11-27] MEDS: POTASSIUM CHLORIDE 10 MEQ in IV D5 1/2 NS 1000 ML 1,000 ML IV PRN (11:30)
[2018-11-27] MEDS: SOD FERRIC GLUC COMPLX/SUCROSE 125 MG in IV NORMAL SALINE 100 ML IV SCH (14:08)
--- NOTE | 2018-11-27 14:39 | NUR ---
PATIENT IS REQUESTING FOR A SUPPOSITORY BUT HAS NO ORDER FOR ONE CALLED THE NEPHROLOGY GROUP FOR DR MOHR SPOKE WITH GABRIELA SANABRIA PAGE THE DOCTOR.
[2018-11-27 15:06] VITALS: BP 144/63
--- NOTE | 2018-11-27 15:57 | NUR ---
DR HAMMER AWARE THAT PATIENT IS REQUESTING FOR A SUPPOSITORY STATED ITS OKAY TO INSERT AN ORDER FROM HIM AND NOTED.PATIENT AWARE WILL ADMINISTER SOON POSSIBLE.
[2018-11-27] MEDS ORDERED: BISACODYL 10 MG SUPP.RECT RC PRN (16:00)
--- NOTE | 2018-11-27 16:20 | NUR ---
DR HOFFMAN GI HERE TO SEE PATIENT RE GT PLACEMENT AND HE CALLED AND SPOKE WITH THE PATIENTS SON ARACELIS AGRAWAL EXPLAINED PROCEDURE AND ARACELIS CONSCENTED OVER THE PHONE AND DR HOFFMAN COSIGNED THE CONSCENT FORM A WITNESS AND STATED THAT THE GT WILL BE PLACED TOMORROW AROUND NOON TIME NOT DEFINITE AT THIS TIME PATIENT AWARE.
--- NOTE | 2018-11-27 16:35 | NUR ---
DULCOLAX SUPPOSITORY GIVEN ORDERED WILL OBSERVE EFFECTIVENESS.
[2018-11-27] MEDS: CYANOCOBALAMIN 100 MCG TABLET PO SCH (17:02)
[2018-11-27] MEDS: ATORVASTATIN 10 MG TABLET PO SCH (17:02)
--- NOTE | 2018-11-27 17:35 | NUR ---
MEDIUM BOWEL MOVEMENT NOTED AT THIS TIME BRITNI CARE DONE AND WILL OBSERVE.
--- NOTE | 2018-11-27 18:30 | NUR ---
PATIENTS AND NIECE HERE TO VISIT AND AWARE OF PLAN TO INSERT GT TOMORROW AND EXPRESSED UNDERSTANDING.
--- NOTE | 2018-11-27 20:00 | NUR ---
Received patient laying comfortably in bed. No acute distress noted. A/O x 3 with periods of confusions. On 4L NC. TELE Afib 106. IV on the left upper arm and FA patent and intact. IVF infusing. Noted bilateral upper extremities bruises, lower extremities edema 2+. On air mattress. Dee draining clear and yellow urine. Safety initiated. Call light within reach. Repositioned.
[2018-11-27 20:11] VITALS: BP 165/63
[2018-11-27] MEDS: ALBUTEROL SULFATE 2.5 MG/3 ML NEBU NEB PRN (20:26)
[2018-11-27] MEDS: IPRATROPIUM BROMIDE 0.5 MG/2.5 ML NEBU IH PRN (20:26)
[2018-11-27] MEDS ORDERED: hydrALAZINE HCL 25 MG TABLET PO PRN (22:30)
[2018-11-28] VITALS (8 sets, daily range): BP systolic 119–145; BP diastolic 51–72
--- NOTE | 2018-11-28 05:47 | NUR ---
Patient slept intermittently t/o shift. In no acute distress noted. Remains A/O x 3 with periods of confusion. In O2 4L NC. IVF infusing in the right upper arm. Right FA IV infiltrated elevated. Patients hearing aid is at bedside. TELE Afib at 96. Patient remains NPO. Dee draining yellow and clear urine. Turned and repositioned Q2H. Pericare done. Vital signs stable. Safety and comfort measures maintained t/o shift. All needs met.
[2018-11-28] MEDS: POTASSIUM CHLORIDE 10 MEQ in IV D5 1/2 NS 1000 ML 1,000 ML IV PRN (06:20)
[2018-11-28 06:27] LABS: BASOPHILS % (AUTO) 0.4 % (0.0-2.0); EOSINOPHILS # (AUTO) 0.1 K/uL (0.0-0.7); HEMATOCRIT 25.2 % (31.2-41.9); HEMOGLOBIN 8.7 g/dL (10.9-14.3); LYMPHOCYTES # (AUTO) 0.6 K/uL (20.0-40.0); LYMPHOCYTES % (AUTO) 5.5 % (20.5-51.5); MEAN CORPUSCULAR HEMOGLOBIN 30.5 uug (24.7-32.8); MEAN CORPUSCULAR HGB CONC 35 g/dL (32.3-35.6); MEAN CORPUSCULAR VOLUME 88.4 fL (75.5-95.3); MONOCYTES # (AUTO) 0.9 K/uL (2.0-10.0); MONOCYTES % (AUTO) 8.4 % (0.0-11.0); NEUTROPHILS # (AUTO) 8.7 K/uL (1.8-8.9); NEUTROPHILS % (AUTO) 84.7 % (38.5-71.5); PLATELET COUNT (AUTO) 291 K/uL (179-408); RED BLOOD CELL COUNT(AUTO) 2.85 MIL/uL (3.63-4.92); WHITE BLOOD COUNT (AUTO) 10.3 K/uL (3.8-11.8)
[2018-11-28 06:34] LABS: ALANINE AMINOTRANSFERASE 21 U/L (14-59); ALKALINE PHOSPHATASE 52 U/L (50-136); ASPARTATE AMINOTRANSFERASE 26 U/L (15-37); BILIRUBIN,TOTAL 0.5 mg/dL (0.2-1.0); CARBON DIOXIDE 24 mmol/L (21-32); CHLORIDE 105 mmol/L (98-107); CREATININE 2.7 mg/dL (0.6-1.3); GLUCOSE 124 mg/dL (74-106); MAGNESIUM 2.4 mg/dL (1.8-2.4); PHOSPHOROUS 2.2 mg/dL (2.5-4.9); POTASSIUM 3.5 mmol/L (3.5-5.1); UREA NITROGEN, BLOOD 55 mg/dL (7-18)
[2018-11-28] MEDS: LEVOTHYROXINE SODIUM 88 MCG TABLET PO SCH (07:00)
--- NOTE | 2018-11-28 07:26 | NUR ---
HELD 0700 PO meds because patient failed Video swallow eval. I am not comfortable giving PO meds. D/W with AM nurse.
[2018-11-28] MEDS: CARBIDOPA/LEVODOPA 25-100MG TABLET PO SCH ×4 (07:30→15:12)
--- NOTE | 2018-11-28 07:44 | NUR ---
Patient resting comfortably in bed at this time. no signs of distress. stable condition. controlled AFIB on tele. NPO status at this time - procedure at 1230. Aspiration precautions implemented. on O2 4L NC. DNR suspension needs to be signed by DPOA (Michael) and physician. Bed alarm on, call light within reach. Safety measures implemented.
[2018-11-28] MEDS: CALCIUM CARB/VITAMIN D 600-400 MG TABLET PO SCH ×2 (09:00→15:11)
[2018-11-28] MEDS: CARVEDILOL 6.25 MG TABLET PO SCH ×3 (09:00→15:52)
[2018-11-28] MEDS: DILTIAZEM HCL CD 120 MG CAP.SR.24H PO SCH ×2 (09:00→15:13)
[2018-11-28] MEDS: FLUTICASONE/VILANTEROL 1 EACH BLST.W.DEV IH SCH (09:28)
[2018-11-28] MEDS: CEFEPIME HCL 1 G in IV DEXTROSE 5% 50 ML IV SCH (09:28)
--- NOTE | 2018-11-28 11:17 | NUR ---
non-administration medications - all PO scheduled morning medications. NPO status implemented due to procedure today and also, patient failed video swallow.
[2018-11-28] MEDS ORDERED: FENTANYL CITRATE 100 MCG/2 ML AMPUL ONE (11:36)
--- NOTE | 2018-11-28 12:07 | NUR ---
patient leaving for procedure at this time. consent signed. preop checklist completed. Suspension of DNR signed with telephone consent from Michael (DPOA).
[2018-11-28] MEDS ORDERED: IRR STERIL WATER FOR IRR 1000 ML BOTTLE IR ONE (12:27)
[2018-11-28] MEDS ORDERED: CEFAZOLIN 1 G VIAL MC ONE (12:27)
[2018-11-28] MEDS ORDERED: PROPOFOL 200 MG/20 ML BOTTLE IV ONE (12:27)
[2018-11-28] MEDS ORDERED: IV NORMAL SALINE 1000 ML BAG IV ONE (12:27)
[2018-11-28] MEDS ORDERED: OSMOLITE 1.2 CAL 1,000 ML LIQUID GT PRN (13:45)
--- NOTE | 2018-11-28 13:45 | NUR ---
Patient returned from surgery at this time. g-tube placement intact, patent, flushing well, no leakage. Vital signs stable. no signs of distress. no signs of respiratory distress. telemetry monitoring placed. ivf running.
[2018-11-28] MEDS: SUCRALFATE 1 G/10 ML LIQUID UDC GT SCH ×3 (15:10→20:52)
[2018-11-28] MEDS ORDERED: NEUTRA PHOS PACKET PO ONE (15:30)
--- NOTE | 2018-11-28 15:30 | NUR ---
Feeding recommendations/order placed - Osmolite 1.2 @ 45 mL x 20 hrs (goal ratE) when feeding initiates. Total volume 1080 ml per day. additional fluid per MD. This would provide 1296 kcals, 60 gms protein, 886 ml free water. Feeding to be started at [address] Hong.
--- NOTE | 2018-11-28 15:30 | NUR ---
administered scheduled morning medications through g-tube.
[2018-11-28] MEDS: CYANOCOBALAMIN 100 MCG TABLET PO SCH (17:10)
[2018-11-28] MEDS: ATORVASTATIN 10 MG TABLET PO SCH (17:10)
--- NOTE | 2018-11-28 18:16 | NUR ---
Patient resting comfortably in bed at this time. no signs of distress. controlled AFIB at this time with HR in 80s. Patient is on O2 4L NC at this time (switched from simple mask @ 1700). G-tube: no signs of leakage. flushing well. patent. IVF running. No signs of respiratory distress. No complaints of pain. no SOB. bed alarm on. call light within reach of patient. safety measures implemented. will continue to monitor until end of shift.
--- NOTE | 2018-11-28 20:00 | NUR ---
Received patient laying comfortably in bed. No acute distress noted. Family at bedside. A/O x 3 with periods of confusions. On 4L NC. TELE Afib 82. IV on the right upper arm and FA patent and intact. IVF infusing. Noted bilateral upper extremities bruises, lower extremities edema 2+. On air mattress. Dee draining clear and yellow urine. PEG tube in place. PEG site clean, dry and intact. Patent and intact. Safety initiated. Call light within reach. Repositioned.
[2018-11-28] MEDS: OSMOLITE 1.2 CAL 1,000 ML LIQUID GT PRN (20:54)
[2018-11-29 00:05] VITALS: BP 145/66
[2018-11-29 04:00] VITALS: BP 108/48
[2018-11-29] MEDS: POTASSIUM CHLORIDE 10 MEQ in IV D5 1/2 NS 1000 ML 1,000 ML IV PRN (05:23)
--- NOTE | 2018-11-29 06:20 | NUR ---
Patient slept intermittently t/o shift. In no acute distress noted. Remains A/O x 3 with periods of confusion. In O2 4L NC. IVF infusing in the right upper arm. Patients hearing aid is at bedside. TELE Afib at 96. Patient remains NPO with tube feeding Osmolite 1.2. Tolerating well. BM x 1. Dee draining yellow and clear urine. Turned and repositioned Q2H. Pericare done. Vital signs stable. Safety and comfort measures maintained t/o shift. All needs met.
[2018-11-29] MEDS: CARBIDOPA/LEVODOPA 25-100MG TABLET PO SCH ×4 (07:01→17:21)
[2018-11-29] MEDS: LEVOTHYROXINE SODIUM 88 MCG TABLET PO SCH (07:01)
[2018-11-29] MEDS: SUCRALFATE 1 G/10 ML LIQUID UDC GT SCH ×4 (07:01→20:45)
[2018-11-29 07:32] LABS: CARBON DIOXIDE 25 mmol/L (21-32); CHLORIDE 107 mmol/L (98-107); CREATININE 2.5 mg/dL (0.6-1.3); GLUCOSE 139 mg/dL (74-106); POTASSIUM 3.5 mmol/L (3.5-5.1); UREA NITROGEN, BLOOD 48 mg/dL (7-18)
[2018-11-29] MEDS: CARVEDILOL 6.25 MG TABLET PO SCH ×2 (08:38→17:21)
[2018-11-29] MEDS: FLUTICASONE/VILANTEROL 1 EACH BLST.W.DEV IH SCH (08:38)
[2018-11-29] MEDS: CEFEPIME HCL 1 G in IV DEXTROSE 5% 50 ML IV SCH (08:38)
[2018-11-29] MEDS: DILTIAZEM HCL CD 120 MG CAP.SR.24H PO SCH (08:39)
[2018-11-29] MEDS: CALCIUM CARB/VITAMIN D 600-400 MG TABLET PO SCH (08:39)
[2018-11-29] MEDS: ALBUTEROL SULFATE 2.5 MG/3 ML NEBU NEB PRN (08:46)
[2018-11-29] MEDS: IPRATROPIUM BROMIDE 0.5 MG/2.5 ML NEBU IH PRN (08:46)
[2018-11-29] MEDS: OSMOLITE 1.2 CAL 1,000 ML LIQUID GT PRN (10:00)
[2018-11-29 10:20] LABS: BASOPHILS % (AUTO) 0.5 % (0.0-2.0); EOSINOPHILS # (AUTO) 0.2 K/uL (0.0-0.7); EOSINOPHILS % (AUTO) 2.1 % (0.0-7.0); HEMATOCRIT 21.9 % (31.2-41.9); HEMOGLOBIN 7.5 g/dL (10.9-14.3); LYMPHOCYTES # (AUTO) 0.5 K/uL (20.0-40.0); LYMPHOCYTES % (AUTO) 5.1 % (20.5-51.5); MEAN CORPUSCULAR HEMOGLOBIN 30.6 uug (24.7-32.8); MEAN CORPUSCULAR HGB CONC 34 g/dL (32.3-35.6); MEAN CORPUSCULAR VOLUME 88.9 fL (75.5-95.3); MONOCYTES # (AUTO) 0.7 K/uL (2.0-10.0); MONOCYTES % (AUTO) 7.6 % (0.0-11.0); NEUTROPHILS # (AUTO) 8.3 K/uL (1.8-8.9); NEUTROPHILS % (AUTO) 84.7 % (38.5-71.5); PLATELET COUNT (AUTO) 279 K/uL (179-408); WHITE BLOOD COUNT (AUTO) 9.8 K/uL (3.8-11.8)
[2018-11-29 10:23] LABS: RED BLOOD CELL COUNT(AUTO) 2.46 MIL/uL (3.63-4.92)
[2018-11-29 11:32] VITALS: BP 115/53
[2018-11-29] MEDS ORDERED: NEUTRA PHOS PACKET PO ONE ×2 (13:30→17:15)
[2018-11-29 15:40] VITALS: BP 120/47
[2018-11-29] MEDS: CYANOCOBALAMIN 100 MCG TABLET PO SCH (17:21)
[2018-11-29] MEDS: ATORVASTATIN 10 MG TABLET PO SCH (17:21)
--- NOTE | 2018-11-29 18:44 | NUR ---
Patient resting comfortably in bed at his time with caregiver at bedside. Tube feeding resumed this am and patient tolerating well with 5cc residual. On 4LNC in no acute distress. Call light in reach Addendum: 11/29/18 at 1846 by ISABEL BELLA RN Turned and repositioned for comfort q2h.
--- NOTE | 2018-11-29 19:00 | NUR ---
RECEIVED PATIENT AWAKE AND ALERT IN BED. NO COMPLAINTS OF PAIN OR ACUTE DISTRESS. VS WNL AND PATIENT IS STABLE. MARISA MIDLINE PATENT AND INTACT. IV ON RIGHT WRIST PATENT AND INTACT. VS WNL. TELE: AFIB CONTROLLED @ 85. PATIENT REMAINS NPO AND IS TOLERATING OSMOLITE 1.2 INFUSING VIA GT @ 45mL/HR. PATIENT STABLE AND RESTING COMFORTABLY. ALL SAFETY MEASURES IN PLACE. CALL LIGHT WITHIN REACH AT ALL TIMES. WILL CONTINUE TO MONITOR.
[2018-11-29 20:00] VITALS: BP 131/69
[2018-11-30 00:14] VITALS: BP 140/64
[2018-11-30 04:00] VITALS: BP 136/63
--- NOTE | 2018-11-30 05:09 | NUR ---
D/C'd RIGHT WRIST IV WITH CATHETER INTACT. BANDAGE APPLIED. PATIENT TOLERATED WELL.
[2018-11-30] MEDS: SUCRALFATE 1 G/10 ML LIQUID UDC GT SCH ×3 (06:42→16:57)
[2018-11-30] MEDS: CARBIDOPA/LEVODOPA 25-100MG TABLET PO SCH ×4 (06:42→16:58)
[2018-11-30] MEDS: LEVOTHYROXINE SODIUM 88 MCG TABLET PO SCH (06:42)
[2018-11-30 06:43] LABS: BASOPHILS % (AUTO) 0.4 % (0.0-2.0); EOSINOPHILS # (AUTO) 0.4 K/uL (0.0-0.7); EOSINOPHILS % (AUTO) 3.3 % (0.0-7.0); HEMATOCRIT 21.9 % (31.2-41.9); HEMOGLOBIN 7.5 g/dL (10.9-14.3); LYMPHOCYTES # (AUTO) 0.8 K/uL (20.0-40.0); LYMPHOCYTES % (AUTO) 7.2 % (20.5-51.5); MEAN CORPUSCULAR HEMOGLOBIN 30.8 uug (24.7-32.8); MEAN CORPUSCULAR HGB CONC 34 g/dL (32.3-35.6); MEAN CORPUSCULAR VOLUME 89.5 fL (75.5-95.3); MONOCYTES # (AUTO) 0.9 K/uL (2.0-10.0); MONOCYTES % (AUTO) 8.1 % (0.0-11.0); NEUTROPHILS # (AUTO) 8.7 K/uL (1.8-8.9); PLATELET COUNT (AUTO) 300 K/uL (179-408); WHITE BLOOD COUNT (AUTO) 10.7 K/uL (3.8-11.8)
[2018-11-30 06:47] LABS: RED BLOOD CELL COUNT(AUTO) 2.45 MIL/uL (3.63-4.92)
[2018-11-30 06:48] LABS: CARBON DIOXIDE 26 mmol/L (21-32); CHLORIDE 108 mmol/L (98-107); CREATININE 2.4 mg/dL (0.6-1.3); GLUCOSE 121 mg/dL (74-106); PHOSPHOROUS 2.2 mg/dL (2.5-4.9); POTASSIUM 3.9 mmol/L (3.5-5.1); UREA NITROGEN, BLOOD 52 mg/dL (7-18)
--- NOTE | 2018-11-30 06:58 | NUR ---
PATIENT SLEPT INTERMITTENTLY THROUGHOUT THE NIGHT. NO COMPLAINTS OF PAIN OR ACUTE DISTRESS. VS WNL AND PATIENT IS STABLE. MARISA MIDLINE PATENT AND INTACT. VS WNL. TELE: AFIB CONTROLLED @ 85. PATIENT REMAINS NPO, GT FEEDING STOPPED AT 0600 ORDERED, WITH 5CC RESIDUAL. 45PATIENT STABLE AND RESTING COMFORTABLY. ALL SAFETY MEASURES IN PLACE. CALL LIGHT WITHIN REACH AT ALL TIMES. REPORT GIVEN TO AM SHIFT.
--- NOTE | 2018-11-30 08:02 | NUR ---
Awake, alert, oriented x 2, hard of hearing. O2 at 4L/NC. Tube feeding off.
[2018-11-30 08:20] LABS: BASOPHILS % (MANUAL) 1 % (0-2); EOSINOPHILS % (MANUAL) 3 % (0-8); LYMPHOCYTES % (MANUAL) 6 % (20-40); MONOCYTES % (MANUAL) 7 % (2-10); MYELOCYTES % 2 % (0-0); NEUTROPHILS % (MANUAL) 81 % (42-75)
[2018-11-30] MEDS: DILTIAZEM HCL CD 120 MG CAP.SR.24H PO SCH (08:53)
[2018-11-30] MEDS: CARVEDILOL 6.25 MG TABLET PO SCH ×2 (08:54→16:58)
[2018-11-30] MEDS: CALCIUM CARB/VITAMIN D 600-400 MG TABLET PO SCH (08:54)
[2018-11-30] MEDS: FLUTICASONE/VILANTEROL 1 EACH BLST.W.DEV IH SCH (09:06)
[2018-11-30] MEDS: OSMOLITE 1.2 CAL 1,000 ML LIQUID GT PRN (10:00)
[2018-11-30] MEDS ORDERED: SUCR1ORA GT (10:55)
[2018-11-30] MEDS ORDERED: DILT120C87 PO (10:55)
[2018-11-30] MEDS ORDERED: LACT-89 GT (10:55)
[2018-11-30 11:30] VITALS: BP 164/53
--- NOTE | 2018-11-30 12:00 | NUR ---
Patient sleeping, repositioned comfortably
--- NOTE | 2018-11-30 14:00 | NUR ---
Hospice seen patient and discussed care with family.
[2018-11-30 15:38] VITALS: BP 121/44
[2018-11-30 16:58] VITALS: BP 121/44
[2018-11-30] MEDS: CYANOCOBALAMIN 100 MCG TABLET PO SCH (16:59)
[2018-11-30] MEDS: ATORVASTATIN 10 MG TABLET PO SCH (16:59)
--- NOTE | 2018-11-30 17:53 | NUR ---
With discharge order to home with hospice arranged. Midline removed. Tele removed. Dee catheter removed. Tube feeding stopped, GT clamped. Remaining bottle and 2 bottles given to caregiver. Patient lethargic, discharge per gurney/ambulance with O2 at 4 L/NC, with caregiver.
[2018-11-30] MEDS ORDERED: BARIUM SULFATE 240 ML ORAL.SUSP PO ONE (17:59)
[2018-11-30] MEDS ORDERED: BARIUM SULFATE 148 GM SUSP.RECON PO ONE (17:59)
== END 2018-11-30 18:00 | disposition hospice, home (50) | DRG 280 ==
LOC: ER 04:56 → CCU 12:19 → TELE3 11-26 18:35 → MEDSURG3 11-30 16:10
PROVIDERS: ADMIT Internal Medicine; ATTEND Nurse Practitioner Acute Care
PROC: 05HY33Z Insertion of Infusion Device into Upper Vein, Percutaneous Approach (ICD-10-PCS; 2018-11-24)
PROC: 3E033RZ Introduction of Antiarrhythmic into Peripheral Vein, Percutaneous Approach (ICD-10-PCS; 2018-11-24)
PROC: 0DH63UZ Insertion of Feeding Device into Stomach, Percutaneous Approach (ICD-10-PCS; principal; 2018-11-28)
PROC: 0DB68ZX Excision of Stomach, Via Natural or Artificial Opening Endoscopic, Diagnostic (ICD-10-PCS; 2018-11-28)
DX: I48.0 Paroxysmal atrial fibrillation (principal); J15.9 Unspecified bacterial pneumonia; I21.A1 Myocardial infarction type 2; J96.22 Acute and chronic respiratory failure with hypercapnia; J96.21 Acute and chronic respiratory failure with hypoxia; I50.33 Acute on chronic diastolic (congestive) heart failure; N17.0 Acute kidney failure with tubular necrosis; E43 Unspecified severe protein-calorie malnutrition; I13.0 Hypertensive heart and chronic kidney disease with heart failure and stage 1 through stage 4 chronic kidney disease, or unspecified chronic kidney disease; N18.4 Chronic kidney disease, stage 4 (severe); Z99.81 Dependence on supplemental oxygen; I27.20 Pulmonary hypertension, unspecified; Z68.24 Body mass index [BMI] 24.0-24.9, adult; E03.9 Hypothyroidism, unspecified; E78.5 Hyperlipidemia, unspecified; Z66 Do not resuscitate; Z96.651 Presence of right artificial knee joint; Z96.641 Presence of right artificial hip joint; Z86.14 Personal history of Methicillin resistant Staphylococcus aureus infection; Z85.038 Personal history of other malignant neoplasm of large intestine; Z90.710 Acquired absence of both cervix and uterus; Z98.49 Cataract extraction status, unspecified eye; R62.7 Adult failure to thrive; M35.3 Polymyalgia rheumatica; D50.9 Iron deficiency anemia, unspecified; K26.9 Duodenal ulcer, unspecified as acute or chronic, without hemorrhage or perforation; R13.12 Dysphagia, oropharyngeal phase; I25.10 Atherosclerotic heart disease of native coronary artery without angina pectoris; G20 Parkinson's disease; F02.80 Dementia in other diseases classified elsewhere, unspecified severity, without behavioral disturbance, psychotic disturbance, mood disturbance, and anxiety; Z91.81 History of falling; K29.70 Gastritis, unspecified, without bleeding; K44.9 Diaphragmatic hernia without obstruction or gangrene; M19.90 Unspecified osteoarthritis, unspecified site; I70.0 Atherosclerosis of aorta; I08.2 Rheumatic disorders of both aortic and tricuspid valves; H91.10 Presbycusis, unspecified ear; M40.209 Unspecified kyphosis, site unspecified
CPT/HCPCS: 36415; 36569; 36600; 43761; 70030-TC; 71045; 74230; 83550; 83605; 83735; 84100; 84156; 84300; 84443; 85025; 85730; 87040; 87086; 87400; 88342; 92526; 92610; 92611; 93005; 93307; 94640; 97110; 97112; 97530; A4217; A4663; G0378; J0690; J0692; J0885; J1650; J1940; J2405; J2543; J2916; J3010; J3370; J3480; J3490; J3590; J7030; J7060